=== PATIENT | female | born 1965 | race Caucasian/White ===

== ENCOUNTER 2021-03-18 10:22 | Emergency (ER) | payer BC, SELFPAY ==
--- NOTE | ~2021-03-18 | XR_ITS ---
EXAMINATION: XR HIP, RIGHT CLINICAL INFORMATION: Pain after fall COMPARISON: CT abdomen pelvis 07/28/2017 TECHNIQUE: Two views of the right hip. FINDINGS: Visualized portion of the proximal right femur demonstrate no fracture. Right femoral head is well-seated within the acetabulum. Right femoral acetabular joint space is relatively well maintained although there are some subtle sclerotic changes along the superior right acetabular margin. A tiny osteophyte is present along the superolateral aspect of the right acetabulum. Punctate calcifications within the pelvis are likely vascular in nature. The pelvic ring is intact. Sacroiliac joints appear symmetric. Grossly unremarkable frontal view of the left hip. XR/XR hip RT w PEL1V IMPRESSION: Mild degenerative changes of the right hip without fracture or dislocation.
--- NOTE | ~2021-03-18 | CT_ITS ---
EXAM: Noncontrast CT scan of the head and cervical spine. INDICATION: Fall COMPARISON: Brain MRI 12/26/2020 TECHNIQUE: Axial slices were obtained from skull base to vertex and displayed. This was followed by helical, multislice, multidetector axial images from the occiput to the upper thorax. Coronal and sagittal reformats of the cervical spine in addition to coronal reformats of the head were obtained at the technologist workstation. DLP: 1290 mGy-cm FINDINGS: HEAD: There is no evidence of acute intracranial hemorrhage or territorial infarction. No abnormal mass effect or midline shift is appreciated. Patrick-white differentiation is well preserved. No extra-axial fluid collections. The ventricular system and cortical sulci are prominent, consistent with age-appropriate volume loss. Mild cerebellar volume loss is also appreciated. There are areas of low density in the periventricular and subcortical white matter, most consistent with sequelae of microvascular ischemic change. Soft tissue hematoma overlying the right posterior scalp. No underlying osseous injury. Mild mucosal thickening of the visualized right maxillary sinus. Other visualized paranasal sinuses and mastoid air cells are well aerated. SPINE: There is straightening of the normal cervical lordosis. Alignment is otherwise unremarkable. Vertebral body heights are maintained. Mild to moderately decreased C4/C5 disc space height with mild narrowing of the C5/C6 and C6/C7 disc space heights. Small osteophytes are present throughout the mid and lower cervical spine. Small posterior disc osteophyte complexes are noted at C4/C5, C5/C6 and C6/C7. Mild diffuse facet hypertrophy. CT/CT cervical spine wo con IMPRESSION: 1. Small soft tissue hematoma overlying the right posterior scalp. No underlying osseous injury. 2. No acute intracranial pathology. 3. Mild sinus disease. 4. No fractures or dislocations of the cervical spine. This CT examination was performed using dose optimization techniques as appropriate, variously including the following: *Automated exposure control *Adjustment of mA and/or kV according to patient size (this includes techniques or standardized protocols for targeted exams where dose is matched to indication/reason for exam; i.e. extremities or head) *Use of iterative reconstruction technique
[2021-03-18 10:38] VITALS: BP 129/78; PULSE 79; RESP 16; TEMP 36.2; O2SAT 97; BMI 30.5
--- NOTE | 2021-03-18 11:14 | ED_ITS ---
HPI - Fall General Chief Complaint: Fall Stated Complaint: fall - head injury Time Seen by Provider: 03/18/21 11:13 Source: patient Mode of arrival: ambulatory Limitations: no limitations History of Present Illness MD complaint: fall Onset (ago): minute(s) (just prior to arrival ) Fall from: standing Fall witnessed: no Place fall occurred: home Loss of consciousness: yes Prolonged down time: unclear Symptoms prior to fall: none Context: tripped/slipped (on ice) Location of injury: head and pelvis (R hip) Severity: moderate Quality: aching Associated symptoms (after fall): headache and lightheaded Related Data Previous Rx's Medication Instructions Recorded cyclobenzaprine 10 mg tablet 10 mg PO TID PRN #14 tab 03/18/21 lidocaine 5 % topical patch 1 patch TOPICAL DAILY PRN #30 ea 03/18/21 ondansetron 4 mg disintegrating 4 mg PO Q8H PRN #20 tab 03/18/21 tablet Allergies Allergy/AdvReac Type Severity Reaction Status Date / Time naproxen [NAPROXEN] Allergy Intermediate DIZZY Unverified 10/27/19 16:11 Naproxen Allergy Unknown Uncoded 09/27/10 00:00 Review of Systems Verdana 4l Review of Systems: Verdana 4d Verdana 4d Constitutional : No Fever, No Chills, No Fatigue ENT/Mouth : No sore throat, No Rhinorrhea Eyes: No Eye Pain, No Swelling, No Redness Cardiovascular : No Chest Pain, No SOB, No Dyspnea on Exertion Respiratory : No Cough, No Sputum GastrointestinalGastrointestinal : No Nausea, No Vomiting, No Diarrhea, No abdominal Pain Genitourinary : No Dysuria, No Urinary Frequency, No Hematuria, Musculoskeletal : pos joint pain, No Myalgias, No Joint Swelling Skin : No Skin Lesions, No rash Neuro : No Weakness, No Numbness, pos Dizziness, positive Headache Psych : No Anxiety/Panic, No Depression Heme/Lymph: No Bruising, No Bleeding,No Lymphadenopathy Endocrine : No Polyuria, No Polydipsia All other systems reviewed and are negative [facility] Past Medical History Attestation statement: The following information was validated with the patient. Medical History HLD (hyperlipidemia) Surgical History H/O: hysterectomy Social History Social History (Updated 03/18/21 @ 11:43 by Laurita Lew DO) Alcohol intake: unknown Patient Tobacco Use Status: Never used Tobacco Use of substances other than those prescribed or required for medical reasons: Unknown Advance Directives: No Advance Directives Information Provided: No Physical Exam Verdana 4l Vital Signs: Verdana 4d Verdana 4d Vital Signs: Verdana 4d Verdana 4Bd Last Vital Signs Verdana 4d Vice President Payer New 4d Vice President Payer New 4d Temp 98.3 F 03/18/21 13:23 Vice President Payer New 4d Pulse 68 03/18/21 13:23 Vice President Payer New 4d Resp 16 03/18/21 13:23 BP 109/63 03/18/21 13:23 Pulse Ox 94 03/18/21 13:23 BMI result Body Mass Index 30.5 Appearance: Alert. Oriented X3. No acute distress. Eyes: Pupils equal, round and reactive to light. ENT: Pharynx normal. mild swelling and ttp R parietal scalp Neck: Normal inspection. Neck supple. some L sided pain with ROM but nothing radicular, no step offs CVS: Normal heart rate and rhythm. Pulses normal. Respiratory: No respiratory distress. Breath sounds normal. Abdomen: Soft and nontender. Back: no midline ttp, atraumatic Skin: Skin warm and dry. Normal skin color. Normal skin turgor. Extremities: No lower extremity edema. No calf ttp Neuro: Oriented X 3. No motor deficit. No sensory deficit. Course Course Course Narrative: no acute findings, GCS 15 - 2.5 hours after the fact stable for DC at this time, able to bear weight and walk, doubt occult hip fracture MDM - Fall MDM Narrative Medical decision making narrative: 55 yo female with head injury after falling on ice pos LOC no DOAC she is GCS 15, c/o dizziness. Also c/o R hip pain at this time will need CT head/cspine to r/o trauma given degree of headache with LOC, also R hip xrays, dispo per results and findings. Discharge Plan Discharge Clinical Impression: Head injury Qualifiers: Encounter type: initial encounter Qualified Code(s): S09.90XA - Unspecified injury of head, initial encounter Hip sprain Qualifiers: Encounter type: initial encounter Laterality: right Qualified Code(s): S73.101A - Unspecified sprain of right hip, initial encounter Contusion Qualifiers: Encounter type: initial encounter Contusion area: head Laterality: right Patient Disposition: Home, Self-Care Instructions: Head Injury (ED), Contusion in Adults (ED), Hip Sprain (ED) Additional Instructions: return to ED for any worsening symptoms or concerns Prescriptions: New cyclobenzaprine 10 mg tablet 10 mg PO TID PRN (Reason: muscle spasm) Qty: 14 0RF ondansetron 4 mg tablet,disintegrating 4 mg PO Q8H PRN (Reason: nausea and vomiting) Qty: 20 0RF lidocaine 5 % adhesive patch,medicated 1 patch topical DAILY PRN (Reason: pain) Qty: 30 0RF Rx Instructions: leave on most painful area for up to 12 hrs Referrals: Qamar Valdovinos MD [Primary Care Provider] - 2 days (if not better) Stand Alone Forms: Work/School Release Interventions: ED Discharge Assessment Last Done: 03/18/21 13:19 Discharge Date/Time: 03/18/21 13:30
[2021-03-18] MEDS: Ondansetron ODT 4 MG TAB.RAPDIS TRANSLINGU (11:46)
[2021-03-18] MEDS: Acetaminophen 325 MG TABLET 650 MG PO (11:46)
--- NOTE | 2021-03-18 12:30 | PC.NURSE ---
pt alert and oriented to self, unsure of date/year, unable to remember phone lock code, vss, c/o headache w 11/18 pain, waiting for CT.
[2021-03-18 13:23] VITALS: BP 109/63; PULSE 68; RESP 16; TEMP 36.8; O2SAT 94
[2021-03-18] MEDS: Ibuprofen 400 MG TABLET PO (13:25)
== END 2021-03-18 13:30 | disposition home or self-care (01) ==
PROVIDERS: Emergency Provider Emergency Medicine; PCP Internal Medicine
DX: S09.90XA Unspecified injury of head, initial encounter (principal); S73.101A Unspecified sprain of right hip, initial encounter; S00.03XA Contusion of scalp, initial encounter; W00.0XXA Fall on same level due to ice and snow, initial encounter; Y93.89 Activity, other specified; Y92.014 Private driveway to single-family (private) house as the place of occurrence of the external cause; Y99.9 Unspecified external cause status
CPT/HCPCS: 70450; 72125; 73502; 99284

== ENCOUNTER 2021-09-19 11:19 | Emergency (ER) | payer BC, SELFPAY ==
--- NOTE | ~2021-09-19 | XR_ITS ---
EXAMINATION: XR CHEST CLINICAL INFORMATION: Chest pain COMPARISON: None TECHNIQUE: Frontal view of the chest was obtained. FINDINGS: There is slight tortuosity of the aorta. The cardiac size richard and vasculature are within normal limits. No consolidation or edema. Mild subsegmental linear density left lower lung could be atelectasis. Slight relative elevation of the right hemidiaphragm. No pleural fluid or pneumothorax. No suspicious abnormality the visualized upper abdomen XR/XR chest 1V IMPRESSION: No acute pneumonia or edema. No pleural fluid or pneumothorax. There may be some minimal subsegmental left lower lobe atelectasis
--- NOTE | ~2021-09-19 | CT_ITS ---
EXAMINATION: CT HEAD WITHOUT CONTRAST CLINICAL INFORMATION: Headache COMPARISON: CT abdomen from 03/18/2021 TECHNIQUE: Contiguous axial imaging was performed from the skull base to vertex without intravenous administration of contrast. This CT examination was performed using dose optimization techniques as appropriate, variously including the following: *Automated exposure control *Adjustment of mA and/or kV according to patient size (this includes techniques or standardized protocols for targeted exams where dose is matched to indication/reason for exam; i.e. extremities or head) *Use of iterative reconstruction technique DLP: 627 mGy-cm FINDINGS: There is no evidence of acute intracranial hemorrhage or territorial infarction. No abnormal mass effect or midline shift is seen. Patrick to white matter differentiation is well preserved. No extra-axial fluid collections are identified. The ventricles are normal in size. There is no abnormal attenuation within the brain parenchyma. Stable sclerotic focus along the left anterior foramen magnum statistically representing an island. The osseous structures and soft tissues are normal. The mastoid air cells and visualized portions of the paranasal sinuses are well aerated. CT/CT head/brain wo con IMPRESSION: No acute intracranial pathology.
--- NOTE | 2021-09-19 11:26 | ECG_ITS ---
Test Reason : CHEST PAIN Blood Pressure : / mmHG Vent. Rate : 104 BPM Atrial Rate : 104 BPM P-R Int : 132 ms QRS Dur : 082 ms QT Int : 330 ms P-R-T Axes : 039 -67 049 degrees QTc Int : 433 ms Sinus tachycardia Left axis deviation Inferior infarct , age undetermined Abnormal ECG No previous ECGs available Referred By: Generic ED Physician Electronically Signed By:GO PEREZ
[2021-09-19 11:33] VITALS: BP 103/73; PULSE 104; RESP 18; TEMP 36.9; O2SAT 96; BMI 30.9
[2021-09-19 11:52] LABS: Hematocrit 43.2 % (37.0-47.0); Hemoglobin 14.6 g/dl (12.0-16.0); Mean Corpuscular HGB Conc 33.8 g/dl (31.0-35.0); Mean Corpuscular Hemoglobin 31.1 pg (27.0-33.0); Mean Corpuscular Volume 92.1 fL (80.0-98.0); Mean Platelet Volume 9.9 fL (9.4-12.3); Platelet Count 250 X10*3/uL (160-400); Red Blood Count 4.69 X10*6/uL (4.20-5.50); Red Cell Distribution Width 12.2 % (11.0-16.0); White Blood Count 7.7 X10*3/uL (4.8-10.8)
[2021-09-19 12:03] LABS: Anion Gap 15 (12-20); Blood Urea Nitrogen 23 mg/dL (9-16); Calcium 9.5 mg/dL (8.4-10.2); Carbon Dioxide 25 mmol/L (22-29); Chloride 106 mmol/L (96-108); Creatinine Clr Calc Pharmacy 79.1; Estimated Glomerular Filt Rate > 60; Glucose Random 124 mg/dL (60-115); Potassium 4.6 mmol/L (3.3-5.1); Sodium 141 mmol/L (135-145)
[2021-09-19 12:11] LABS: B Type Natriuretic Peptide < 10 pg/mL (<100); Troponin-I High Sensitivity < 3.5 ng/L (<3.5-17.0)
--- NOTE | 2021-09-19 13:17 | ED_ITS ---
HPI - Chest Pain General Chief Complaint: Chest Pain Stated Complaint: dizzy pain l side chest Time Seen by Provider: 09/19/21 12:28 Source: patient Mode of arrival: ambulatory Limitations: no limitations History of Present Illness HPI narrative: 56-year-old female history of migraine and high cholesterol presents to ED for multiple complaints. Patient states since Thursday having migraine headache exacerbation with dizziness described as the room spinning, nausea, vomiting, headache and some photophobia. Patient states still having headache but significantly improved from Thursday. Patient states dizziness also improving. Patient states around 09:00 o'clock was with the granddaughter and she thought sounded weird, but continued about her day. Patient states presently no slurred speech, no facial droop, no paralysis of extremities, no loss of vision, or inability to walk. Patient states 1 hour before coming to the ER she started have some pleuritic chest pain on the left described as sharp. Related Data Previous Rx's Medication Instructions Recorded cyclobenzaprine 10 mg tablet 10 mg PO TID PRN muscle spasm #14 03/18/21 tabs lidocaine 5 % topical patch 1 patch topical DAILY PRN pain #30 03/18/21 ea ondansetron 4 mg disintegrating 4 mg PO Q8H PRN nausea and 03/18/21 tablet vomiting #20 tabs smozwcuazy-pqzzwyxtjwwcp-iziolxwr 1 cap PO Q4-6H PRN pain 5 days #20 09/19/21 50 mg-300 mg-40 mg capsule caps (Fioricet) ketorolac 10 mg tablet 10 mg PO QID PRN pain 5 days #20 09/19/21 tabs prednisone 20 mg tablet 40 mg PO DAILY 5 days #10 tabs 09/19/21 Allergies Allergy/AdvReac Type Severity Reaction Status Date / Time naproxen [NAPROXEN] Allergy Intermediate DIZZY Unverified 10/27/19 16:11 Naproxen Allergy Unknown Uncoded 09/27/10 00:00 Review of Systems Review of Systems: migraine headache. improving dizziness. resolved nausea/vomitting. Yes all other systems are reviewed and are negative [facility] Past Medical History Medical History HLD (hyperlipidemia) Surgical History H/O: hysterectomy Social History Social History (Updated 03/18/21 @ 11:43 by Antonieta Lew DO) Alcohol intake: unknown Patient Tobacco Use Status: Never used Tobacco Advance Directives: No Advance Directives Information Provided: No Physical Exam Vital Signs: Vital Signs: Last Vital Signs Temp 98.0 F 09/19/21 16:15 Pulse 89 09/19/21 16:15 Resp 18 09/19/21 16:15 BP 120/75 09/19/21 16:15 Pulse Ox 97 09/19/21 16:15 O2 Del Method 09/19/21 16:15 BMI result Body Mass Index 30.9 Const: General: cooperative, healthy appearing, comfortable, no acute distress, well developed, alert, awake and Physically active Orientation/consciousness: oriented to person, oriented to place, oriented to time and patient oriented x3 HEENT: Head: Yes normal to inspection, Yes No palpable skull fracture present, Yes normocephalic, Yes atraumatic and No abrasion Eyes: General: appearance normal, both eyes and all related structures Neck: Neck: Yes normal visual inspection, Yes full ROM, Yes no lymphadenopathy, Yes no meningeal signs, Yes trachea midline, Yes supple, No anterior neck swelling and No tender Chest: Chest palpation & inspection: normal inspection of the chest and normal palpation of entire chest wall Resp: Effort & Inspection: normal respiratory effort and able to speak in complete sentences Auscultation: clear to auscultation bilaterally Cardio: Jugular venous distension: no JVD Heart sounds: S1 normal heart sound present and S2 normal heart sound present GI: Inspection: Yes normal to inspection and No abdominal wall ecchymosis Palpation (GI): Soft to palpation, not firm, nontender, no guarding and not rigid : General: No CVA tenderness and Yes no CVA tenderness Back/Spine/Pelvis: Back: no CVA tenderness, No CVA tenderness and No back tenderness Skin: General skin exam: no rashes or lesions noted and elasticity normal Neuro: Other: Negative slurred speech. Negative facial droop. Negative pronator drift. Dnvges-sk-emlc rapid hand movement intact. Negative Romberg. All extremities equal strength 5+. General: oriented to person, oriented to place, oriented to time, patient oriented x3, gait normal, tone normal, moves all extremities, Normal light touch and pain sensation, no meningeal signs, no focal motor deficits and CN's II-XI intact bilaterally Extrem: General: Yes normal to inspection and Yes full ROM Psych: Appearance: grossly normal, well kempt and not disheveled NIH Stroke Scale Internal: Initial- Upon Arrival Level of Consciousness: Alert Level of Consciousness Questions: Answers both questions correctly Level of Consciousness Commands: Performs both tasks correctly Best Gaze: Normal Visual: No visual loss Facial Palsy: Normal Motor Arm (Right): No drift Motor Arm (Left): No drift Motor Leg (Right): No drift Motor Leg (Left): No drift Limb Ataxia: Absent Sensory: Normal Best Language: No aphasia Dysarthia: Normal Extinction and Inattention: No abnormality Score: 0 Course Course Course Narrative: Due to patient stating pleurisy will order D-dimer. Patient wrapped a medical screen done patient had the PEG chest x-ray ordered. NIH score 0. Still order head CT due to patient stating headache for the past 3 days although history of migraines and symptoms sound like migraines. Zofran Fioricet fluid ordered. Will order 2nd troponin due to Age. Reevaluation(s) Reevaluation #1: Chest CT scan came back normal. NIH score 0. case discussed with attending Dr. Lew who agrees patient is not having a stroke. Patient is 2 troponin negative patient given Toradol, Fioricet, dexamethasone, and Toradol for migraine exacerbation. EKG negative STEMI. D-dimer negative. Well's Score is 0 . Presently not suspecting PE, mi, or stroke. Diagnosis migraine exacerbation. Negative for any neuro deficits. Time: 17:09 MDM - Chest Pain MDM Narrative Medical decision making narrative: Atypical chest pain. Migraines as Lab Data Result diagrams: 09/19/21 11:42 09/19/21 11:42 Labs: Lab Results 09/19/21 09/19/21 09/19/21 Range/Units 11:42 11:42 11:42 WBC 7.7 (4.8-10.8) X10*3/uL RBC 4.69 (4.20-5.50) X10*6/uL Hgb 14.6 (12.0-16.0) g/dl Hct 43.2 (37.0-47.0) % MCV 92.1 (80.0-98.0) fL MCH 31.1 (27.0-33.0) pg MCHC 33.8 (31.0-35.0) g/dl RDW 12.2 (11.0-16.0) % Plt Count 250 (160-400) X10*3/uL MPV 9.9 (9.4-12.3) fL Absolute Nucleated RBC 0.000 (0.0-0.012) X10*3/uL Nucleated RBC % (auto) 0.0 (0.0-0.2) /100WBC PT (10.0-13.1) SEC INR (0.9-1.1) APTT (26.0-36.4) SEC D-Dimer High Sensitivty NG/ML Sodium 141 (135-145) mmol/L Potassium 4.6 (3.3-5.1) mmol/L Chloride 106 (96-108) mmol/L Carbon Dioxide 25 (22-29) mmol/L Anion Gap 15 (12-20) BUN 23 H (9-16) mg/dL Creatinine 0.82 (0.5-1.4) mg/dL Estim Creat Clear Calc 79.1 Estimated GFR > 60 Random Glucose 124 H (60-115) mg/dL Calcium 9.5 (8.4-10.2) mg/dL Troponin I High Sens < 3.5 (<3.5-17.0) ng/L B-Natriuretic Peptide < 10 (<100) pg/mL 09/19/21 09/19/21 Range/Units 13:27 15:31 WBC (4.8-10.8) X10*3/uL RBC (4.20-5.50) X10*6/uL Hgb (12.0-16.0) g/dl Hct (37.0-47.0) % MCV (80.0-98.0) fL MCH (27.0-33.0) pg MCHC (31.0-35.0) g/dl RDW (11.0-16.0) % Plt Count (160-400) X10*3/uL MPV (9.4-12.3) fL Absolute Nucleated RBC (0.0-0.012) X10*3/uL Nucleated RBC % (auto) (0.0-0.2) /100WBC PT 9.8 L (10.0-13.1) SEC INR 0.9 (0.9-1.1) APTT 31.5 (26.0-36.4) SEC D-Dimer High Sensitivty < 150 NG/ML Sodium (135-145) mmol/L Potassium (3.3-5.1) mmol/L Chloride (96-108) mmol/L Carbon Dioxide (22-29) mmol/L Anion Gap (12-20) BUN (9-16) mg/dL Creatinine (0.5-1.4) mg/dL Estim Creat Clear Calc Estimated GFR Random Glucose (60-115) mg/dL Calcium (8.4-10.2) mg/dL Troponin I High Sens < 3.5 (<3.5-17.0) ng/L B-Natriuretic Peptide < 10 (<100) pg/mL ECG Data ECG #1: Interpretation: Sinus Tachycardia. NOmral Sinus rhythm, Vent rate 102, MO interval. 132 QRS duration, QTC 433, Discharge Plan Discharge Clinical Impression: Atypical chest pain, Migraine headache Patient Disposition: Home, Self-Care Instructions: Chest Pain (DC), Migraine Headache (ED), Acute Headache (ED) Additional Instructions: Return to the ED immediatley for slurred speech, facial droop, paralysis of extremities, nausea, vomitting, chest pain, fever, chills, difficulity walking, fever, chills, severe headache, loss of vision, coughing up blood, leg swelling, calf pain, pain on inspiration or any other concerning symptoms. Please follow up with PCP and neurologist Prescriptions: New uykjbyjvkj-mrdsbjqwitcpl-tuxq [Fioricet] 50-300-40 mg capsule 1 cap PO Q4-6H PRN (Reason: pain) 5 Days Qty: 20 0RF prednisone 20 mg tablet 40 mg PO DAILY 5 Days Qty: 10 0RF ketorolac 10 mg tablet 10 mg PO QID PRN (Reason: pain) 5 Days Qty: 20 0RF Rx Instructions: received 30mg IM toradol in the ED No Action cyclobenzaprine 10 mg tablet 10 mg PO TID PRN (Reason: muscle spasm) Qty: 14 0RF ondansetron 4 mg tablet,disintegrating 4 mg PO Q8H PRN (Reason: nausea and vomiting) Qty: 20 0RF lidocaine 5 % adhesive patch,medicated 1 patch topical DAILY PRN (Reason: pain) Qty: 30 0RF Rx Instructions: leave on most painful area for up to 12 hrs Stand Alone Forms: Work/School Release Print Language: Mohawk
[2021-09-19] MEDS: ondansetron HCL 4 MG/2 ML VIAL IVPUSH (13:35)
[2021-09-19] MEDS: Butalb/Acetamin/Caff 50/325/40 TABLET 2 TAB PO (13:35)
[2021-09-19] MEDS: 0.9 % Sodium Chloride 1,000 ML 999 ML IV (13:35)
[2021-09-19 13:39] LABS: INTERNATIONAL NORM RATIO 0.9 (0.9-1.1); Prothrombin Time 9.8 SEC (10.0-13.1)
[2021-09-19 13:41] LABS: Partial Thromboplastin Time 31.5 SEC (26.0-36.4)
[2021-09-19 13:45] LABS: D Dimer High Sensitivity < 150 NG/ML
[2021-09-19 15:06] VITALS: BP 108/64; PULSE 95; TEMP 36.9; O2SAT 98
[2021-09-19 15:55] LABS: B Type Natriuretic Peptide < 10 pg/mL (<100); Troponin-I High Sensitivity < 3.5 ng/L (<3.5-17.0)
[2021-09-19 16:15] VITALS: BP 120/75; PULSE 89; RESP 18; TEMP 36.7; O2SAT 97
[2021-09-19] MEDS: dexAMETHasone sod phosphate 10 MG/ML VIAL IVPUSH (16:38)
[2021-09-19] MEDS: Ketorolac Tromethamine 30 MG/ML VIAL IVPUSH (16:38)
== END 2021-09-19 18:11 | disposition home or self-care (01) ==
PROVIDERS: Physician Assistant; Emergency Provider Emergency Medicine; PCP Internal Medicine
DX: R07.89 Other chest pain (principal); G43.909 Migraine, unspecified, not intractable, without status migrainosus
CPT/HCPCS: 36415; 70450; 71045; 80048; 83880; 84484; 85027; 85379; 85610; 85730; 93005; 96361; 96374; 96375; 99284; 99285; J1100; J1885; J2405

== ENCOUNTER 2021-10-23 12:26 | Inpatient (IN) | payer BC, SELFPAY ==
--- NOTE | ~2021-10-23 | CT_ITS ---
EXAMINATION: CT ABDOMEN AND PELVIS WITHOUT CONTRAST CLINICAL INFORMATION: Left lower quadrant pain. Evaluate for diverticulitis. COMPARISON: CT abdomen/pelvis dated from 07/28/2017. TECHNIQUE: Multidetector volumetric imaging was performed from the superior aspect of the liver through the pubic symphysis. Sagittal and coronal reformatted images were obtained on the technologist's workstation. This CT examination was performed using dose optimization techniques as appropriate, variously including the following: *Automated exposure control *Adjustment of mA and/or kV according to patient size (this includes techniques or standardized protocols for targeted exams where dose is matched to indication/reason for exam; i.e. extremities or head) *Use of iterative reconstruction technique DLP: 751 mGy-cm FINDINGS: LUNG BASES: Subsegmental atelectasis. No focal consolidation or pleural effusion. LIVER, GALLBLADDER, AND BILIARY TREE: A few liver cysts and several other too small to characterize hypodensities are not convincingly changed when compared to 07/28/2017. The liver is normal in size, shape and attenuation. No new liver lesions. Normal appearance of the gallbladder. No findings to suspect acute cholecystitis. No biliary ductal dilatation. PANCREAS: Unremarkable. SPLEEN: Unremarkable. ADRENAL GLANDS: Unremarkable. KIDNEYS AND URETERS: The kidneys are normal in size, shape, and attenuation. No hydronephrosis, hydroureter, or calculi seen. No perinephric stranding. BLADDER: Decompressed limiting its evaluation. GASTROINTESTINAL TRACT: The stomach and the small bowel are nondilated. Normal appendix. There is wall thickening and significant fat stranding associated with diverticuli in the sigmoid colon. No evidence of drainable collection at this time. No pneumoperitoneum. No evidence of bowel obstruction. ABDOMINAL WALL: No significant hernia is appreciated. LYMPH NODES: No lymphadenopathy by size criteria. VASCULAR: Aortoiliac atherosclerosis. The abdominal aorta is of normal diameter. PELVIC VISCERA: Small volume of free fluid, likely physiologic or reactive. Redemonstration of a bilobed fatty density structure in the lower abdomen/upper pelvis measuring 3.6 cm craniocaudally (5:40) stable when compared to 07/28/2017. OSSEOUS STRUCTURES: No acute or aggressive osseous abnormalities. Degenerative changes of the spine. CT/CT abdomen pelvis wo IV con IMPRESSION: Findings are most suspicious for acute sigmoid diverticulitis. Other chronic findings as above.
[2021-10-23 13:18] VITALS: BP 155/89; PULSE 100; RESP 18; TEMP 36.5; O2SAT 98; BMI 31.7
[2021-10-23 13:41] LABS: MANUAL DIFF FLAG NO
[2021-10-23 13:44] LABS: Basophils Percent Auto 0.3 % (0-2); Eosinophils Absolute Auto 0.2 X10*3/uL (0.0-0.4); Eosinophils Percent Auto 1.8 % (0-4); Hematocrit 42.4 % (37.0-47.0); Hemoglobin 13.8 g/dl (12.0-16.0); Imm Gran Abs Auto 0.03 X10*3/uL (0.00-0.03); Imm Gran Pct Auto 0.3 % (0.0-0.4); Lymphocytes Absolute Auto 1.3 X10*3/uL (1.2-4.9); Lymphocytes Percent Auto 13.7 % (20-40); Mean Corpuscular HGB Conc 32.5 g/dl (31.0-35.0); Mean Corpuscular Hemoglobin 30.1 pg (27.0-33.0); Mean Corpuscular Volume 92.4 fL (80.0-98.0); Mean Platelet Volume 10.4 fL (9.4-12.3); Monocytes Absolute Auto 0.9 X10*3/uL (0.1-1.2); Monocytes Percent Auto 9.2 % (2-11); Neutrophils Absolute Auto 7.3 x10*3/uL (2.0-8.3); Neutrophils Percent Auto 74.7 % (45-73); Platelet Count 227 X10*3/uL (160-400); Red Blood Count 4.59 X10*6/uL (4.20-5.50); Red Cell Distribution Width 12.1 % (11.0-16.0); White Blood Count 9.8 X10*3/uL (4.8-10.8)
[2021-10-23 14:21] LABS: Alanine Aminotransferase 15 U/L (0-31); Alkaline Phosphatase 67 U/L (39-117); Anion Gap 15 (12-20); Aspartate Amino Transferase 16 U/L (5-31); Bilirubin Direct 0.2 mg/dL (0.0-0.5); Bilirubin Total 0.5 mg/dL (0.0-1.0); Blood Urea Nitrogen 12 mg/dL (9-16); Calcium 9.2 mg/dL (8.4-10.2); Carbon Dioxide 23 mmol/L (22-29); Chloride 106 mmol/L (96-108); Creatinine Clr Calc Pharmacy 88.9; Estimated Glomerular Filt Rate > 60; Glucose Random 97 mg/dL (60-115); Lipase 16 U/L (8-78); Potassium 4.7 mmol/L (3.3-5.1); Sodium 139 mmol/L (135-145); Total Protein 6.7 g/dL (6.5-8.0)
--- NOTE | 2021-10-23 17:43 | ED_ITS ---
HPI - Abdominal Pain General Chief Complaint: Abdominal Pain Stated Complaint: sever diverticulitis Time Seen by Provider: 10/23/21 12:29 Source: patient Mode of arrival: ambulatory Limitations: no limitations History of Present Illness HPI narrative: 56-year-old female with a PMHx of diverticulitis who presents to the ED for evaluation of LLQ pain. The patient reports that her pain began approximately 1 week ago and she chose to attempt to treat herself conservatively at home with a liquid diet because she becomes ill from the antibiotics she has received with past episodes of diverticulitis. She tells me that this worked for a few days, however, she went back to her normal diet over the weekend and then her pain returned and has worsened over the past 3 days. She saw her PCP and was given Augmentin, she has taken 4 doses without relief. She now reports 10/10 pain in her LLQ and has been unable to tolerate anything by mouth, appears very uncomfortable. She has nausea but denies vomiting, fever, chills, chest pain, shortness of breath, headaches, or dizziness. MD elicited complaint: abdominal pain Location: LLQ Related Data Previous Rx's Medication Instructions Recorded cyclobenzaprine 10 mg tablet 10 mg PO TID PRN muscle spasm #14 03/18/21 tabs lidocaine 5 % topical patch 1 patch topical DAILY PRN pain #30 03/18/21 ea ondansetron 4 mg disintegrating 4 mg PO Q8H PRN nausea and 03/18/21 tablet vomiting #20 tabs [id number]-[id number]-vxiwpncc 1 cap PO Q4-6H PRN pain 5 days #20 09/19/21 50 mg-300 mg-40 mg capsule caps (Fioricet) ketorolac 10 mg tablet 10 mg PO QID PRN pain 5 days #20 09/19/21 tabs prednisone 20 mg tablet 40 mg PO DAILY 5 days #10 tabs 09/19/21 Allergies Allergy/AdvReac Type Severity Reaction Status Date / Time naproxen [NAPROXEN] Allergy Intermediate DIZZY Unverified 10/27/19 16:11 Naproxen Allergy Unknown Uncoded 09/27/10 00:00 Review of Systems Review of Systems Constitutional : No Weight loss, No Fever, + Chills, No Fatigue, No Malaise ENT/Mouth : No sore throat, No Rhinorrhea Eyes: No Eye Pain, No Swelling, No Redness Cardiovascular : No Chest Pain, No SOB, No Dyspnea on Exertion, No Orthopnea, No Edema, No Palpitations Respiratory : No Cough, No Sputum, No Wheezing Gastrointestinal : + Nausea, No Vomiting, No Diarrhea, No Constipation, + abdominal Pain, No Hematochezia, No Melena Genitourinary : No Dysuria, No Urinary Frequency, No Hematuria, Musculoskeletal : No joint pain, No Myalgias, No Joint Swelling Skin : No Skin Lesions, No rash Neuro : No Weakness, No Numbness, No Dizziness, No Headache Psych : No Anxiety/Panic, No Depression All other systems reviewed and are negative Yes all other systems are reviewed and are negative COUNT INCLUDES THE [facility] Past Medical History Attestation statement: The following information was validated with the patient. Source: old records reviewed and nursing notes reviewed Medical History HLD (hyperlipidemia) Surgical History H/O: hysterectomy Social History Social History (Updated 03/18/21 @ 11:43 by Antonieta Lew DO) Alcohol intake: unknown Patient Tobacco Use Status: Never used Tobacco Advance Directives: No Advance Directives Information Provided: No Physical Exam ED Vital Signs: Vital Signs - 24 hr 10/23/21 13:18 Temperature 97.7 F Pulse Rate 100 Respiratory Rate 18 Blood Pressure 155/89 H Pulse Oximetry 98 Oxygen Delivery Method Room Air BMI result Body Mass Index 31.7 vss Appearance: Alert.? Oriented X3.? Uncomfortable appearing, mild distress. Tearful during evaluation. Head: Normocephalic, atraumatic, no step-offs or deformities Eyes: Pupils equal, round and reactive to light.? Neck: Normal inspection.? Neck supple.? CVS: Normal heart rate and rhythm.? Pulses normal.? Respiratory: No respiratory distress.? Breath sounds normal.? Abdomen: Soft and +LLQ pain.? Skin: Skin warm and dry.? Normal skin color.? Normal skin turgor.? Extremities: No lower extremity edema.? No calf ttp. 5/5 strength to bilateral upper and lower extremities Neuro: Oriented X 3.? No motor deficit.? No sensory deficit. CN 2-12 intact Course Reevaluation(s) Reevaluation #1: CT abdomen/pevis remarkable for acute sigmoid diverticulitis. CBC shows mild elevated neutrophils, no leukocytosis. Chemistry WNL. Will give Levoquin, Flagyl, Zofran, Morphine. Time: 17:58 Reevaluation #2: Patient will be admitted to hospitalist for further intervention and tx as patient is on PO atbx on home and isnt tollerating PO. Time: 18:01 MDM - Abdominal Pain MDM Narrative Medical decision making narrative: 17:45 56 y/o F presenting with severe LLQ pain. Patient has known diverticulosis, PCP provided the patient with Augmentin, has taken for 2 days, patient reports worsening pain. Unable to tolerate PO. PE significant for LLQ pain, no rigidity or signs of acute abdomen. Patient tea rful and uncomfortable appearing. Plan to obtain basic labs, CT abd/pelvis. Suspect persistent diverticulitis, less likely complicated diverticulitis with perforation/abscess, torsion, appendicitis. Medical Records Attestation: I reviewed the patient's medical records. Lab Data Attestation: I reviewed the patient's lab results. Result diagrams: 10/23/21 13:35 10/23/21 13:35 Labs: Lab Results 10/23/21 10/23/21 10/23/21 Range/Units 13:35 13:35 13:35 WBC 9.8 (4.8-10.8) X10*3/uL RBC 4.59 (4.20-5.50) X10*6/uL Hgb 13.8 (12.0-16.0) g/dl Hct 42.4 (37.0-47.0) % MCV 92.4 (80.0-98.0) fL MCH 30.1 (27.0-33.0) pg MCHC 32.5 (31.0-35.0) g/dl RDW 12.1 (11.0-16.0) % Plt Count 227 (160-400) X10*3/uL MPV 10.4 (9.4-12.3) fL Immature Gran % (Auto) 0.3 (0.0-0.4) % Neut % (Auto) 74.7 H (45-73) % Lymph % (Auto) 13.7 L (20-40) % [place] % (Auto) 9.2 (2-11) % Eos % (Auto) 1.8 (0-4) % Baso % (Auto) 0.3 (0-2) % Lymph # (Auto) 1.3 (1.2-4.9) X10*3/uL [place] # (Auto) 0.9 (0.1-1.2) X10*3/uL Eos # (Auto) 0.2 (0.0-0.4) X10*3/uL Baso # (Auto) 0.0 (0.0-0.2) X10*3/uL Abs Immat Gran (auto) 0.03 (0.00-0.03) X10*3/uL Absolute Neuts (auto) 7.3 (2.0-8.3) x10*3/uL Absolute Nucleated RBC 0.000 (0.0-0.012) X10*3/uL Nucleated RBC % (auto) 0.0 (0.0-0.2) /100WBC Sodium 139 (135-145) mmol/L Potassium 4.7 (3.3-5.1) mmol/L Chloride 106 (96-108) mmol/L Carbon Dioxide 23 (22-29) mmol/L Anion Gap 15 (12-20) BUN 12 (9-16) mg/dL Creatinine 0.74 (0.5-1.4) mg/dL Estim Creat Clear Calc 88.9 Estimated GFR > 60 Random Glucose 97 (60-115) mg/dL Lactic Acid 1.0 (0.5-2.0) mmol/L Calcium 9.2 (8.4-10.2) mg/dL Total Bilirubin 0.5 (0.0-1.0) mg/dL Direct Bilirubin 0.2 (0.0-0.5) mg/dL AST 16 (5-31) U/L ALT 15 (0-31) U/L Alkaline Phosphatase 67 (39-117) U/L Total Protein 6.7 (6.5-8.0) g/dL Albumin 4.0 (3.5-5.0) g/dL Lipase 16 (8-78) U/L Critical Care Time Critical Care Time Critical Care Time: No Discharge Plan Discharge Clinical Impression: Diverticulitis, Nausea Patient Disposition: Admitted As Inpatient
--- NOTE | 2021-10-23 19:48 | PM.IMHP ---
History of Present Illness Date of Service: 10/23/21 Attending physician on admission: Wilfrid Gonzalez Chief Complaint: diverticulitis 56 year old female with history of anxiety, migraine headaches, hx diverticulitis, and hyperlipidemia presented to ED today for evaluation of LLQ pain ongoing for 1 week. Reports she tried a clear liquid diet for several days with some improvement in her symptoms, however pain recurred. Called her PCP who prescribed augmentin. Pt took this for two days without improvement. Reporting 10/10 pain in the llq and across the low back as well as nasuea and headaches and chills. Was able to tolerate a few crackers this morning. Has been constipated an reports some hematochezia. No fevers, leukocytosis, anemia. CT abd/pelvis with acute sigmoid diverticulitis. No abscess or perforation. Review of Systems Review of Systems: General: No fevers, malaise, unintentional weight loss Cardiovascular: No chest pain, palpitations, or leg edema Respiratory: No shortness of breath, wheezing, cough GI: +abd pain, +constipation, +nausea, +brbpr. No vomiting, diarrhea, constipation, melena Neuro: No headaches, weakness, paresthesias Skin: No rashes or lesions [facility] Medical History (Updated 10/23/21 @ 19:59 by ZHANG Duran) Anxiety HLD (hyperlipidemia) Family History (Updated 10/23/21 @ 20:00 by ZHANG Duran) Mother Smoker Lung cancer Brother [place] (myocardial infarction) Surgical History H/O: hysterectomy Social History (Updated 03/18/21 @ 11:43 by Antonieta Lew DO) Alcohol intake: unknown Patient Tobacco Use Status: Never used Tobacco Advance Directives: No Advance Directives Information Provided: No Meds Allergies Allergy/AdvReac Type Severity Reaction Status Date / Time naproxen [NAPROXEN] Allergy Intermediate DIZZY Unverified 10/27/19 16:11 Naproxen Allergy Unknown Uncoded 09/27/10 00:00 Active Medications: Current Medications Acetaminophen (Acetaminophen 325 Mg Tablet) 650 mg PO Q6H PRN PRN Reason: Pain, Mild (Pain Scale 1-3) Enoxaparin Sodium (Enoxaparin Sodium 40 Mg/0.4 Ml Syringe) 40 mg SUBCUT Q24H COUNTS INCLUDE 234 BEDS AT THE [facility] Hydromorphone HCl (Hydromorphone Hcl 0.5 Mg/0.5 Ml Syringe) 0.5 mg IVPUSH Q4H PRN; Protocol PRN Reason: Pain, Severe (Pain Scale 7-10) Levofloxacin (Levaquin) 750 mg in 150 mls @ 100 mls/hr IV Q24H COUNTS INCLUDE 234 BEDS AT THE [facility] Stop: 10/27/21 21:14 Metronidazole (Flagyl) 500 mg in 100 mls @ 100 mls/hr IV Q8H COUNTS INCLUDE 234 BEDS AT THE [facility] Stop: 10/28/21 12:44 Oxycodone HCl (Oxycodone Hcl Immed Release 5 Mg Tablet) 5 mg PO Q6H PRN PRN Reason: Pain, Moderate (Pain Scale 4-6 Pharmacy Consult (Consult Rx Perform Med Rec) 1 each MISCELLANE ONCE PRN PRN Reason: Consult order Sodium Chloride (0.9 % Sodium Chloride Flush 3 Ml Syringe) 3 ml IVFLUSH QSHIFT COUNTS INCLUDE 234 BEDS AT THE [facility] Physical Exam Vital Signs and Narrative: Vital Signs: Last Vital Signs Temp 97.7 F 10/23/21 13:18 Pulse 100 10/23/21 13:18 Resp 18 10/23/21 13:18 BP 155/89 H 10/23/21 13:18 Pulse Ox 98 10/23/21 13:18 O2 Del Method 10/23/21 13:18 BMI result Body Mass Index 31.7 Constitutional - Awake and Alert, No apparent distress Eyes - PERRLA, EOMI Cardiovascular - S1S2, RRR, No edema Respiratory - Normal lung expansion, Normal respiratory effort, No respiratory distress, CTA bilaterally Gastrointestinal - TTP LLQ with voluntary guarding. ND; +BS; No rebound Extremities - no calf tenderness bilaterally, no swelling Musculoskeletal - Normal inspection, normal ROM Skin - Warm/Dry Neurological - Alert & oriented x3, CN II-XII in tact Psychological - Appropriate affect Results Labs CBC and Chem 7: 10/23/21 13:35 10/23/21 13:35 Labs: Laboratory Results - last 24 hr 10/23/21 10/23/21 10/23/21 13:35 13:35 13:35 MCV 92.4 MCH 30.1 MCHC 32.5 RDW 12.1 Plt Count 227 MPV 10.4 Immature Gran % (Auto) 0.3 Neut % (Auto) 74.7 H Lymph % (Auto) 13.7 L [place] % (Auto) 9.2 Eos % (Auto) 1.8 Baso % (Auto) 0.3 Lymph # (Auto) 1.3 [place] # (Auto) 0.9 Eos # (Auto) 0.2 Baso # (Auto) 0.0 Abs Immat Gran (auto) 0.03 Absolute Neuts (auto) 7.3 Absolute Nucleated RBC 0.000 Nucleated RBC % (auto) 0.0 Anion Gap 15 Estim Creat Clear Calc 88.9 Estimated GFR > 60 Random Glucose 97 Lactic Acid 1.0 Calcium 9.2 Total Bilirubin 0.5 Direct Bilirubin 0.2 AST 16 ALT 15 Alkaline Phosphatase 67 Total Protein 6.7 Albumin 4.0 Lipase 16 Imaging Radiologist's Impressions: Impressions Abdomen/Pelvis CT 10/23/21 14:52 IMPRESSION: Findings are most suspicious for acute sigmoid diverticulitis. Other chronic findings as above. Assessment and Plan (1) Diverticulitis: Status: Acute Plan 56 year old female with history of anxiety, migraine headaches, hx diverticulitis, and hyperlipidemia presented to ED today for evaluation of LLQ pain admitted for diverticulitis having failed outpt therapy. 1- Acute sigmoid diverticulitis -IV flagyl and IV metronidazole -Clear liquid diet to be advanced as tolerated -Ondansetron prn for nausea -Oxycodone and dilaudid per sliding scale for pain -IVF 2-Constipation -Docusate prn 3-HLD -Continue atorvastatin 4-Migraines -Fioricet prn 5-Anxiety -Continue home meds DVT prophylaxis- Lovenox Full code Pt requires inpt stay of at least 2 midnights for treatment of diverticulitis requiring IV abx after failing oral meds outpt. Quality Stroke Does the patient have a stroke diagnosis?: No VTE Prior VTE?: No VTE Risk Level:: Medical - moderate - high VTE Device Contraindication: Treatment Not Indicated VTE Drug Contraindication: N/A - Med Ordered
[2021-10-23] MEDS: metroNIDAZOLE 500 MG TABLET PO (20:41)
[2021-10-23] MEDS: 0.9 % Sodium Chloride 1,000 ML 999 ML IV (20:41)
[2021-10-23] MEDS: Acetaminophen 325 MG TABLET 650 MG PO (20:41)
[2021-10-23] MEDS: levoFLOXacin/D5W 750 MG/150 ML PIGGYBACK 100 MG IV (20:41)
[2021-10-23] MEDS: Docusate Sodium 100 MG CAPSULE PO (20:41)
[2021-10-23] MEDS: Morphine Sulfate 4 MG/ML CARTRIDGE IVPUSH (20:42)
[2021-10-23] MEDS: ondansetron HCL 4 MG/2 ML VIAL IVPUSH (20:44)
[2021-10-24] MEDS: Enoxaparin Sodium 40 MG/0.4 ML SYRINGE SUBCUT ×2 (00:02→21:46)
[2021-10-24] MEDS: HYDROmorphone HCl 0.5 MG/0.5 ML SYRINGE IVPUSH ×4 (01:52→18:32)
[2021-10-24] MEDS: ondansetron HCL 4 MG/2 ML VIAL IVPUSH ×2 (01:57→08:28)
[2021-10-24] MEDS: Acetaminophen 325 MG TABLET 650 MG PO (03:00)
[2021-10-24 03:20] VITALS: BP 122/78; PULSE 99; RESP 18; TEMP 37.1; O2SAT 100
[2021-10-24] MEDS: metroNIDAZOLE/NS 500 MG/100 ML PIGGYBACK 100 MG IV ×3 (06:35→21:46)
[2021-10-24 07:11] LABS: COVID-19 Test Negative (Negative)
--- NOTE | 2021-10-24 08:36 | PC.NURSE ---
pt alert and oriented, skin pwd, respirations even and unlabored, pt reports having a terrible headache 8/10 some nausea and 5/10 pain for the abd. at this time dr rosado at bedside with change the pt's diet from liquid diet to bland diet and also will change the motrin to fioricet. pt does not want anything at this time for the abd pain
--- NOTE | 2021-10-24 08:42 | PC.NURSE ---
called to give report to med/surgical nurse awaiting a call back
--- NOTE | 2021-10-24 08:50 | PHA.MEDREC ---
Pharmacy Consult ? Medication Reconciliation Pharmacy has REVIEWED the medication reconciliation done by ISRAEL Sears. Needed clarification, spoke to patient. Patient states she has stopped the venlafaxine.
[2021-10-24] MEDS: Butalb/Acetamin/Caff 50/325/40 TABLET 1 TAB PO ×3 (09:02→17:14)
[2021-10-24 09:03] VITALS: BP 114/50; PULSE 81; RESP 18; O2SAT 97
--- NOTE | 2021-10-24 09:27 | HO.PM.IMPN ---
Subjective Subjective Date of Service: 10/24/21 Interval History: cC: headache interval history:migraines Cardiovascular Cardiovascular: Reports no additional cardiovascular complaints Respiratory Respiratory: Reports no additional respiratory complaints Physical Exam Vital Signs: Vital Signs: Last Vital Signs Temp 98.8 F 10/24/21 03:20 Pulse 81 10/24/21 09:03 Resp 18 10/24/21 09:03 BP 114/50 L 10/24/21 09:03 Pulse Ox 97 10/24/21 09:03 O2 Del Method 10/24/21 09:03 BMI result Body Mass Index 31.7 General: AO X 3, in distress Resp: CTA bilateral, no accessory muscles used CVS: S1,S2,RRR GI: soft, LLQ tender, non distended Neuro: motor grossly intact, alert Psych: appropriate affect, appropriate insight Objective Data Active Medications Acetaminophen (Acetaminophen 325 Mg Tablet) 650 mg PO Q6H PRN PRN Reason: Pain, Mild (Pain Scale 1-3) Last Admin: 10/24/21 03:00 Dose: 650 mg Documented By: JACKELIN Acetaminophen/Butalbital/Caffeine (Butalb/Acetamin/Caff 50/325/40 Tablet) 1 tab PO Q4H PRN PRN Reason: migraine Last Admin: 10/24/21 09:02 Dose: 1 tab Documented By: JOS Docusate Sodium (Docusate Sodium 100 Mg Capsule) 100 mg PO BID PRN PRN Reason: Constipation Last Admin: 10/23/21 20:41 Dose: 100 mg Documented By: VINITA Enoxaparin Sodium (Enoxaparin Sodium 40 Mg/0.4 Ml Syringe) 40 mg SUBCUT Q24H YURIY Last Admin: 10/24/21 00:02 Dose: 40 mg Documented By: TATIANA Hydromorphone HCl (Hydromorphone Hcl 0.5 Mg/0.5 Ml Syringe) 0.5 mg IVPUSH Q4H PRN; Protocol PRN Reason: Pain, Severe (Pain Scale 7-10) Last Admin: 10/24/21 01:52 Dose: 0.5 mg Documented By: JACKELIN Levofloxacin (Levaquin) 750 mg in 150 mls @ 100 mls/hr IV Q24H YURIY Stop: 10/28/21 21:29 Metronidazole (Flagyl) 500 mg in 100 mls @ 100 mls/hr IV Q8H [facility] Stop: 10/28/21 22:59 Last Infusion: 10/24/21 07:36 Dose: 100 mls/hr Documented By: DONATO Ondansetron HCl (Ondansetron Hcl 4 Mg/2 Ml Vial) 4 mg IVPUSH Q6H PRN PRN Reason: nasuea Last Admin: 10/24/21 08:28 Dose: 4 mg Documented By: JOS Oxycodone HCl (Oxycodone Hcl Immed Release 5 Mg Tablet) 5 mg PO Q6H PRN PRN Reason: Pain, Moderate (Pain Scale 4-6 Pharmacy Consult (Consult Rx Perform Med Rec) 1 each MISCELLANE ONCE PRN PRN Reason: Consult order Sodium Chloride (0.9 % Sodium Chloride Flush 3 Ml Syringe) 3 ml IVFLUSH QSHIFT [facility] Last Admin: 10/24/21 07:30 Dose: Not Given Documented By: DONATO Non-Admin Reason: IV Running Labs CBC & Chem 7: 10/23/21 13:35 10/23/21 13:35 Labs: Laboratory Results - last 24 hr 10/23/21 10/23/21 10/23/21 13:35 13:35 13:35 MCV 92.4 MCH 30.1 MCHC 32.5 RDW 12.1 Plt Count 227 MPV 10.4 Immature Gran % (Auto) 0.3 Neut % (Auto) 74.7 H Lymph % (Auto) 13.7 L [place] % (Auto) 9.2 Eos % (Auto) 1.8 Baso % (Auto) 0.3 Lymph # (Auto) 1.3 [place] # (Auto) 0.9 Eos # (Auto) 0.2 Baso # (Auto) 0.0 Abs Immat Gran (auto) 0.03 Absolute Neuts (auto) 7.3 Absolute Nucleated RBC 0.000 Nucleated RBC % (auto) 0.0 Anion Gap 15 Estim Creat Clear Calc 88.9 Estimated GFR > 60 Random Glucose 97 Lactic Acid 1.0 Calcium 9.2 Total Bilirubin 0.5 Direct Bilirubin 0.2 AST 16 ALT 15 Alkaline Phosphatase 67 Total Protein 6.7 Albumin 4.0 Lipase 16 COVID-19 (DRU) COVID-19 Clin Com 10/24/21 06:39 MCV MCH MCHC RDW Plt Count MPV Immature Gran % (Auto) Neut % (Auto) Lymph % (Auto) [place] % (Auto) Eos % (Auto) Baso % (Auto) Lymph # (Auto) [place] # (Auto) Eos # (Auto) Baso # (Auto) Abs Immat Gran (auto) Absolute Neuts (auto) Absolute Nucleated RBC Nucleated RBC % (auto) Anion Gap Estim Creat Clear Calc Estimated GFR Random Glucose Lactic Acid Calcium Total Bilirubin Direct Bilirubin AST ALT Alkaline Phosphatase Total Protein Albumin Lipase COVID-19 (DRU) Negative COVID-19 Clin Com See Note Assessment and Plan (1) Anxiety: Status: Acute Plan 56F with PMH anxiety, 2 previous episodes diverticulitis, hld, migraines, presented with abd pain, found to have acute sigmoid diverticulitis Acute sigmoid diverticulitis Continue IV Levaquin and Flagyl Advance to bland diet Pain control outpatient GI follow up Migraine Fioricet Anxiety Ativan p.r.n. Hyperlipidemia Statin DVT prophylaxis with Lovenox Full code reason for continued hospitalization: still in significant pain, requires iv opiates, not tolerating solids Quality Stroke Does the patient have a stroke diagnosis?: No VTE Prior VTE?: No VTE Risk Level:: Medical - moderate - high VTE Device Contraindication: Treatment Not Indicated VTE Drug Contraindication: N/A - Med Ordered
--- NOTE | 2021-10-24 10:21 | PC.NURSE ---
report given to aniket self at med/surg
[2021-10-24 10:42] VITALS: BP 115/58; PULSE 70; RESP 17; TEMP 36.6; O2SAT 96
--- NOTE | 2021-10-24 13:40 | MHC.CM.PN ---
Met with patient for Case Management assessment. Lives @ home w/ . No services prior to admission. to transport @ d/c. D/C plan- home no services.
[2021-10-24 16:00] VITALS: BP 117/59; PULSE 90; RESP 16; TEMP 36.8; O2SAT 99
[2021-10-24] MEDS: LORazepam 0.5 MG TABLET PO ×2 (18:37→19:56)
[2021-10-24 19:48] VITALS: BP 131/80; PULSE 72; RESP 18; TEMP 36.2; O2SAT 98
[2021-10-24] MEDS: levoFLOXacin/D5W 750 MG/150 ML PIGGYBACK 100 MG IV (19:56)
[2021-10-24] MEDS: 0.9 % Sodium Chloride Flush 3 ML SYRINGE IVFLUSH (21:46)
[2021-10-24 23:25] VITALS: BP 97/58; PULSE 77; RESP 18; TEMP 36.3; O2SAT 98
--- NOTE | 2021-10-25 00:27 | MHC.PIE ---
p; pt c/o heartburn asking for medication i; dr collier notified; new order tums prn e; will cont to monitor
[2021-10-25] MEDS: HYDROmorphone HCl 0.5 MG/0.5 ML SYRINGE IVPUSH (02:47)
[2021-10-25 03:18] VITALS: BP 110/56; PULSE 81; RESP 16; TEMP 36.6; O2SAT 93
[2021-10-25] MEDS: metroNIDAZOLE/NS 500 MG/100 ML PIGGYBACK 100 MG IV (06:23)
[2021-10-25 06:26] LABS: Hematocrit 36.2 % (37.0-47.0); Mean Corpuscular HGB Conc 33.1 g/dl (31.0-35.0); Mean Corpuscular Hemoglobin 30.7 pg (27.0-33.0); Mean Corpuscular Volume 92.6 fL (80.0-98.0); Mean Platelet Volume 10.9 fL (9.4-12.3); Platelet Count 221 X10*3/uL (160-400); Red Blood Count 3.91 X10*6/uL (4.20-5.50); White Blood Count 5.7 X10*3/uL (4.8-10.8)
[2021-10-25 07:11] LABS: Anion Gap 14 (12-20); Blood Urea Nitrogen 7 mg/dL (9-16); Calcium 8.6 mg/dL (8.4-10.2); Carbon Dioxide 24 mmol/L (22-29); Chloride 106 mmol/L (96-108); Creatinine Clr Calc Pharmacy 86.6; Estimated Glomerular Filt Rate > 60; Glucose Fasting 115 mg/dL (60-99); Potassium 3.8 mmol/L (3.3-5.1); Sodium 140 mmol/L (135-145)
[2021-10-25 08:00] VITALS: BP 110/67; PULSE 74; RESP 18; TEMP 36.1; O2SAT 96
[2021-10-25] MEDS: 0.9 % Sodium Chloride Flush 3 ML SYRINGE IVFLUSH (08:14)
[2021-10-25] MEDS: Acetaminophen 325 MG TABLET 650 MG PO (08:14)
--- NOTE | 2021-10-25 09:52 | P.DS_ITS ---
DS: Providers Provider Date of Service: 10/25/21 Date of admission: 10/23/21 19:38 Primary care physician: Deloris Worley MD DS: Diagnosis Discharge Diagnosis (1) Anxiety: Status: Acute DS: Summary Hospital Course Hospital Course: from initial hpi: Chief Complaint: diverticulitis 56 year old female with history of anxiety, migraine headaches, hx diverticulitis, and hyperlipidemia presented to ED today for evaluation of LLQ pain ongoing for 1 week. Reports she tried a clear liquid diet for several days with some improvement in her symptoms, however pain recurred. Called her PCP who prescribed augmentin. Pt took this for two days without improvement. Reporting 1 0/10 pain in the llq and across the low back as well as nasuea and headaches and chills. Was able to tolerate a few crackers this morning. Has been constipated an reports some hematochezia. No fevers, leukocytosis, anemia. CT abd/pelvis with acute sigmoid diverticulitis. No abscess or perforation. hospitla course: Patient was admitted for acute sigmoid diverticulitis. She was treated with IV Levaquin and Flagyl, her pain improved and she was advanced to solid diet. On discharge she will be given 7 more days of p.o. Augmentin. She will follow up with Gastroenterology as outpatient as this is her 3rd episode. For her migraine she was given Fioricet. For anxiety she used Ativan p.r.n.. For hyperlipidemia she was continued on statin. Patient is feeling better will be discharged home. Time Spent with Patient Time attestation: Total time spent providing and/or coordinating discharge services: Discharge coordination time: Greater than 30 minutes Quality: Safe Use of Opioids Does Pt have an Active Cancer Diagnosis on the Problem List?: No Quality: Stroke Does the patient have a stroke diagnosis?: No Physical Exam Vital Signs: Vital Signs: Last Vital Signs Temp 97.0 F 10/25/21 08:00 Pulse 74 10/25/21 08:00 Resp 18 10/25/21 08:00 BP 110/67 10/25/21 08:00 Pulse Ox 96 10/25/21 08:00 O2 Del Method 10/25/21 08:00 BMI result Body Mass Index 31.7 General: AO X 3, no acute distress Resp: CTA bilateral, no accessory muscles used CVS: S1,S2,RRR GI: soft, non tender, non distended Neuro: motor grossly intact, alert Psych: appropriate affect, appropriate insight DS: Data Data Completed and Pending Labs on day of discharge: Laboratory Results - last 24 hr 10/25/21 10/25/21 05:20 05:20 WBC 5.7 RBC 3.91 L Hgb 12.0 Hct 36.2 L MCV 92.6 MCH 30.7 MCHC 33.1 RDW 12.0 Plt Count 221 MPV 10.9 Absolute Nucleated RBC 0.000 Nucleated RBC % (auto) 0.0 Sodium 140 Potassium 3.8 Chloride 106 Carbon Dioxide 24 Anion Gap 14 BUN 7 L Creatinine 0.76 Estim Creat Clear Calc 86.6 Estimated GFR > 60 Fasting Glucose 115 H Calcium 8.6 D Preliminary micro results at discharge 10/23/21 20:25 Blood Culture - Preliminary Blood - Venous No growth after 24 hours. 10/23/21 19:19 Blood Culture - Preliminary Blood - Venous No growth after 24 hours. Discharge Plan Discharge Patient Disposition: Home, Self-Care Discharge Diagnosis: diverticulitis Referrals: Quin Nunes MD [Physician] - 2 days Deloris Worley MD [Primary Care Provider] - 1 Week Discharge Medications: New amoxicillin-pot clavulanate 875-125 mg tablet 1 tab PO Q12H Qty: 14 0RF Continued hzoyxhdmpy-mtkjlivwqdclo-hvdw [Fioricet] 50-300-40 mg capsule 1 cap PO Q4-6H PRN (Reason: pain) 5 Days Qty: 20 0RF atorvastatin 10 mg tablet 1 tab PO DAILY lorazepam 0.5 mg tablet 1 tab PO TID meclizine 25 mg tablet 1 tab PO BID Discontinued amoxicillin-pot clavulanate 500-125 mg tablet 1 tab PO BID Discharge Orders: Discharge Order (Routine); Ordered 10/25/21 Ordered By: Wilfrid Gonzalez Diet: Advance to usual diet Activity on Discharge: As tolerated Stand Alone Forms: Patient Portal Discharge page Care Plan Goals: recovery Health Concerns: diverticulitis Plan of Treatment: 7 more days augmentin, follow up gi Assessment: see above Patient Instructions: Diverticulitis (ED), Diverticulitis Diet (ED)
--- NOTE | 2021-10-25 10:16 | MHC.CM.PN ---
PT MEDICALLY CLEARED TO D/C HOME SELF-CARE W/FAMILY FOR TRANSPORT
[2021-10-25 12:00] VITALS: BP 124/59; PULSE 69; RESP 18; TEMP 35.9; O2SAT 97
== END 2021-10-25 13:27 | disposition home or self-care (01) | DRG 244 ==
LOC: HO.ED 18:09 → HO.EDOVER 19:54 → HO.S3 10-24 08:06
PROVIDERS: Emergency Medicine; Physician Assistant; Admitting Provider Physician Assistant; Emergency Provider Emergency Medicine Emergency Medical Services; PCP Internal Medicine; Visit Provider Internal Medicine
DX: K57.32 Diverticulitis of large intestine without perforation or abscess without bleeding (principal); E78.5 Hyperlipidemia, unspecified; G43.909 Migraine, unspecified, not intractable, without status migrainosus; F41.9 Anxiety disorder, unspecified; Z20.822 Contact with and (suspected) exposure to COVID-19; Z90.710 Acquired absence of both cervix and uterus; Z79.899 Other long term (current) drug therapy
CPT/HCPCS: 36415; 74176; 80048; 80076; 83605; 83690; 85025; 85027; 87040; 87635; 99285; J1170; J1650; J1956; J2270; J2405

== ENCOUNTER → 2022-07-15 12:50 | Outpatient (BNVA) | payer BC, SELFPAY | PROVIDERS: PCP Internal Medicine; Visit Provider Internal Medicine ==

== ENCOUNTER 2022-08-28 12:19 | Day surgery (SDC) | payer BC, SELFPAY ==
--- NOTE | 2022-08-27 13:48 | HO.ANESPROP2 ---
Documented by User: Destiney Corrales NP 08/27/22 13:48 HPI - Anesthesia Eval Consult details Narrative: 57yo F for Colonoscopy PMFSH Active Problems Active Problems: All Active Problems (Updated 07/15/22 @ 14:42 by Janna Hudson MD) Diverticulitis (Acute) Nausea (Acute) Diverticulosis (Acute) History of diverticulitis (Acute) Anxiety (Acute) Past Medical History Medical History (Updated 07/15/22 @ 14:42 by Janna Hudson MD) Anxiety HLD (hyperlipidemia) Family History Family History Mother Smoker Lung cancer Brother [place] (myocardial infarction) Surgical History Surgical History (Updated 08/28/22 @ 12:42 by Danni Ibrahim RN) H/O: hysterectomy History of bladder suspension procedure Hx of blepharoplasty Hx of colonoscopy Hx of elbow surgery Social History Social History Household Members: Spouse Housing: House Do you presently have visiting nurse or other home services: No Alcohol intake: never Patient Tobacco Use Status: Never used Tobacco Substance Use Type: Marijuana service: No Current occupational status: employed Meds Allergies Allergy/AdvReac Type Severity Reaction Status Date / Time No Known Allergies Allergy Verified 08/28/22 12:42 Home Medications Medication Instructions Recorded Confirmed Last Taken Type atorvastatin 10 mg tablet 1 tab PO DAILY 10/23/21 08/28/22 Unknown History lorazepam 0.5 mg tablet 1 tab PO TID 10/23/21 08/28/22 Unknown History albuterol sulfate 90 mcg/actuation 1 - 2 puff inhalation Q4-6H PRN 07/15/22 08/28/22 Unknown History aerosol inhaler wheezing escitalopram oxalate 10 mg tablet 10 mg PO DAILY 07/15/22 08/28/22 Unknown History (Lexapro) clonidine HCl 0.1 mg tablet 0.3 mg PO BEDTIME 08/28/22 08/28/22 Unknown History Exam Exam Date and Time: August 27, [id number] Assessment and Plan Assessment Anesthesia Assessment: Chart Reviewed Documented by User: Quin Streeter MD 08/28/22 13:04 [facility] Past Medical History Medical History (Updated 07/15/22 @ 14:42 by Janna Hudson MD) Anxiety HLD (hyperlipidemia) Family History Family History Mother Smoker Lung cancer Brother [place] (myocardial infarction) Surgical History Surgical History (Updated 08/28/22 @ 12:42 by Danni Ibrahim RN) H/O: hysterectomy History of bladder suspension procedure Hx of blepharoplasty Hx of colonoscopy Hx of elbow surgery History of Problems with Anesthesia: No Social History Social History Household Members: Spouse Housing: House Do you presently have visiting nurse or other home services: No Alcohol intake: never Patient Tobacco Use Status: Never used Tobacco Substance Use Type: Marijuana service: No Current occupational status: employed Meds Allergies Allergy/AdvReac Type Severity Reaction Status Date / Time No Known Allergies Allergy Verified 08/28/22 12:42 Home Medications Medication Instructions Recorded Confirmed Last Taken Type atorvastatin 10 mg tablet 1 tab PO DAILY 10/23/21 08/28/22 Unknown History lorazepam 0.5 mg tablet 1 tab PO TID 10/23/21 08/28/22 Unknown History albuterol sulfate 90 mcg/actuation 1 - 2 puff inhalation Q4-6H PRN 07/15/22 08/28/22 Unknown History aerosol inhaler wheezing escitalopram oxalate 10 mg tablet 10 mg PO DAILY 07/15/22 08/28/22 Unknown History (Lexapro) clonidine HCl 0.1 mg tablet 0.3 mg PO BEDTIME 08/28/22 08/28/22 Unknown History Exam Airway Mallampati Class: II TM Dist: >3cm Neck ROM: Full Loose/Missing/Broken Teeth: No Heart: RRR Lungs: CTA Assessment and Plan Assessment Anesthesia Assessment: Anesthesia Plan Discussed Final Anesthetic Review History of Problems with Anesthesia: No NPO: Yes ASA Class: II Final Preanesthetic Review: Meds/Allgs Chart Reviewed, Consent Obtained/Reviewed and Anes Risks/Benef Reviewed Patient Risk: Low Procedure Risk: Low Anesthetic Plan Anesthetic Plan: MAC: Disposition: Standard PACU
[2022-08-28 12:43] VITALS: BMI 30.6
[2022-08-28 12:52] VITALS: BP 125/44; PULSE 69; RESP 15; TEMP 36.3; O2SAT 95
[2022-08-28] MEDS: Lactated Ringers 1,000 ML 100 ML IVCONT (13:07)
--- NOTE | 2022-08-28 13:08 | MHC.SHP ---
Pre-Procedural Eval Section A Date of Service: 08/28/22 Section B Chief Complaint: Diverticulosis of intestine, part unspecified, Details of Present Illness: PMH: Anxiety HLD (hyperlipidemia) Surgical History H/O: hysterectomy Hx of colonoscopy Family History Mother Smoker Lung cancer Brother [place] (myocardial infarction) Present Medications: see Short Stay Collaborative assessment Allergies: Allergies Allergy/AdvReac Type Severity Reaction Status Date / Time No Known Allergies Allergy Verified 08/28/22 12:42 Review of Systems Review of Systems Comment: Ten point ROS negative Exam Exam Comment: Gen appear: No acute distress HEENT: no icterus Chest: No overt resp distress Abd: soft, nontender, nondistended Psych: Stable affect, answering questions appropriately Neuro: A/Ox3 noted to move all extremities spontaneously Ext: no peripheral edema Plan Diagnosis/Plan: Unchanged I have reviewed the history and physical and performed a pertinent physical examination on my patient. No changes have occurred unless specified. Time Spent With Patient Time: Total time managing care of this patient today ____ minutes.
--- NOTE | 2022-08-28 13:14 | P.OP_ITS ---
Operative Note Operative Note Date of Service: 08/28/22 Narrative: Procedure: Colonoscopy Indication: History of diverticulitis Endoscopist: Janna Hudson MD Anesthesia Provider: Becky Gonzales CRNA Anesthesia type: MAC Instrument: Olympus [id number]-H190L Consent: Indication, risks vs benefits, and alternatives were discussed with the patient who gave written informed consent to proceed. EKG, pulse, pulse oximetry and blood pressure were monitored throughout the procedure. Please see anesthesia flowsheet. Procedure: The patient was brought to the procedure room and placed in the left lateral decubitus position. IV medications were administered by the anesthesia provider in attendance. A digital rectal exam was performed which was normal. A distal attachment cap was affixed to the tip of the scope and the colonoscope was then inserted through the anus and advanced through the colon to the cecum at 75 cm,and terminal ileum. Appendiceal orifice and ileocecal valve were identified. Mucosa was carefully examined under high definition white light as the instrument was slowly withdrawn in a retrograde panoramic fashion. Retroflexion was performed in rectum. The procedure was not difficult. There were no immediate obvious complications. The quality of the prep was BBPS: 3+2+3 = adequate Withdrawal time 20 minutes. Limitations: No limitations. Findings: Mucosa: Normal to cecum and terminal ileum. Protruding lesions: * 1 sessile polyp of size 8 mm in descending colon. Cold snare polypectomy was performed. The polyp was completely removed and retrieved. * 1 semi-pedunculated polyp of size 20 mm in sigmoid colon at 20 cm. A previous tattoo was noted in this area. Piece-meal hot snare polypectomy was performed. The polyp was completely removed and retrieved. A Resolution ultra clip was placed at the polypectomy site to prevent post-polypectomy bleeding. * Medium internal hemorrhoids without stigmata of recent bleeding. Excavated lesions: * Diffuse diverticulosis of left sided colon. Impression: 1. Normal colon and terminal mucosa 2. Total of 2 polyps removed from descending, and sigmoid colon. 3. Previous tattoo at 20 cm 4. Internal hemorrhoids 5. Diverticulosis Recommendations: - Follow path results. - Flexible sigmoidoscopy in 6 months to follow up on the piece-meal polypectomy.
[2022-08-28 14:01] VITALS: BP 95/40; PULSE 84; RESP 16; O2SAT 95
[2022-08-28 14:16] VITALS: BP 89/47; PULSE 66; RESP 16; O2SAT 98
[2022-08-28 14:31] VITALS: BP 91/44; PULSE 61; RESP 16; O2SAT 98
[2022-08-28 14:46] VITALS: BP 102/57; PULSE 69; RESP 16; O2SAT 98
[2022-08-28] MEDS: Acetaminophen 325 MG TABLET 650 MG PO (14:53)
== END 2022-08-28 15:31 | disposition home or self-care (01) ==
PROVIDERS: PCP Internal Medicine; Visit Provider Internal Medicine
PROC: 0DJD8ZZ Inspection of Lower Intestinal Tract, Via Natural or Artificial Opening Endoscopic (ICD-10-PCS; CPT 45378; principal; 2022-08-28 14:10)
DX: D12.4 Benign neoplasm of descending colon (principal); D12.5 Benign neoplasm of sigmoid colon; K57.30 Diverticulosis of large intestine without perforation or abscess without bleeding; K64.8 Other hemorrhoids; E78.5 Hyperlipidemia, unspecified; F12.90 Cannabis use, unspecified, uncomplicated; Z90.710 Acquired absence of both cervix and uterus; Z87.19 Personal history of other diseases of the digestive system
CPT/HCPCS: 45385; 88305

== ENCOUNTER → 2022-08-28 12:19 | Outpatient (BNV) | payer BC, SELFPAY | PROVIDERS: PCP Internal Medicine; Visit Provider Internal Medicine | DX: Z87.19 Personal history of other diseases of the digestive system (principal); D12.4 Benign neoplasm of descending colon; D12.5 Benign neoplasm of sigmoid colon; K57.30 Diverticulosis of large intestine without perforation or abscess without bleeding; K64.8 Other hemorrhoids | CPT/HCPCS: 45385 ==

== ENCOUNTER 2023-02-20 12:47 | Day surgery (SDC) | payer BC, SELFPAY ==
--- NOTE | 2023-02-19 10:25 | P.CONAN_ITS ---
Documented by User: Destiney Corrales NP 02/19/23 10:26 HPI - Anesthesia Eval Consult details Narrative: 57yo F for Sigmoidoscopy Flexible PMFSH Active Problems Active Problems: All Active Problems (Updated 07/15/22 @ 14:42 by Janna Hudson MD) History of diverticulitis (Acute) Diverticulosis (Acute) Nausea (Acute) Diverticulitis (Acute) Anxiety (Acute) Past Medical History Medical History Anxiety HLD (hyperlipidemia) Family History Family History Mother Smoker Lung cancer Brother [place] (myocardial infarction) Surgical History Surgical History Hx of elbow surgery Hx of blepharoplasty History of bladder suspension procedure Hx of colonoscopy H/O: hysterectomy History of Problems with Anesthesia: No Social History Social History Household Members: Spouse Housing: House Do you presently have visiting nurse or other home services: No Alcohol intake: never Patient Tobacco Use Status: Never used Tobacco Substance Use Type: Marijuana Substance Use Frequency: Occasionally Are you DNR?: No Advance Directives: No Advance Directives Information Provided: Yes Nutrition Risks: No Nutritional Risk service: No Current occupational status: employed Meds Allergies Allergy/AdvReac Type Severity Reaction Status Date / Time No Known Allergies Allergy Verified 02/20/23 13:16 Home Medications Medication Instructions Recorded Confirmed Last Taken Type atorvastatin 10 mg tablet 1 tab PO DAILY 10/23/21 02/20/23 Unknown History lorazepam 0.5 mg tablet 1 tab PO TID 10/23/21 02/20/23 Unknown History escitalopram oxalate 10 mg tablet 10 mg PO DAILY 07/15/22 02/20/23 Unknown History (Lexapro) clonidine HCl 0.1 mg tablet 0.3 mg PO BEDTIME 08/28/22 02/20/23 Unknown History Assessment and Plan Assessment Anesthesia Assessment: Chart Reviewed Final Anesthetic Review History of Problems with Anesthesia: No Documented by User: Joan Darnell MD 02/20/23 13:47 PMFSH Past Medical History Medical History Anxiety HLD (hyperlipidemia) Family History Family History Mother Smoker Lung cancer Brother [place] (myocardial infarction) Family history of problems with anesthesia: No Surgical History Surgical History Hx of elbow surgery Hx of blepharoplasty History of bladder suspension procedure Hx of colonoscopy H/O: hysterectomy Social History Social History Household Members: Spouse Housing: House Do you presently have visiting nurse or other home services: No Alcohol intake: never Patient Tobacco Use Status: Never used Tobacco Substance Use Type: Marijuana Substance Use Frequency: Occasionally Are you DNR?: No Advance Directives: No Advance Directives Information Provided: Yes Nutrition Risks: No Nutritional Risk service: No Current occupational status: employed Meds Allergies Allergy/AdvReac Type Severity Reaction Status Date / Time No Known Allergies Allergy Verified 02/20/23 13:16 Home Medications Medication Instructions Recorded Confirmed Last Taken Type atorvastatin 10 mg tablet 1 tab PO DAILY 10/23/21 02/20/23 Unknown History lorazepam 0.5 mg tablet 1 tab PO TID 10/23/21 02/20/23 Unknown History escitalopram oxalate 10 mg tablet 10 mg PO DAILY 07/15/22 02/20/23 Unknown Histo ry (Lexapro) clonidine HCl 0.1 mg tablet 0.3 mg PO BEDTIME 08/28/22 02/20/23 Unknown History Exam Airway Mallampati Class: II TM Dist: >3cm Neck ROM: Full Heart: rrr Lungs: cta Assessment and Plan Assessment Anesthesia Assessment: Anesthesia Plan Discussed Final Anesthetic Review Family History of Problems with Anesthesia: No NPO: Yes ASA Class: II Final Preanesthetic Review: No Changes in Pt Med Stat, Meds/Allgs Chart Reviewed and Consent Obtained/Reviewed Patient Risk: Intermediate Procedure Risk: Intermediate Anesthetic Plan Anesthetic Plan: MAC: Disposition: Standard PACU
[2023-02-20] MEDS: Lactated Ringers 1,000 ML 100 ML IVCONT (13:35)
[2023-02-20 13:41] VITALS: BMI 30.8
[2023-02-20 13:42] VITALS: BP 105/68; PULSE 80; RESP 18; TEMP 36.7; O2SAT 96
--- NOTE | 2023-02-20 13:45 | MHC.SHP ---
Pre-Procedural Eval Section A Date of Service: 02/20/23 The patient is an INPATIENT: No The History & Physical has been completed within 30 days and I have reviewed it.: No Section B Chief Complaint: Surveillance for colon polyps Relevant Family History (Specify if Yes): No Relevant Social History: None Present Medications: see Short Stay Collaborative assessment Medical History: Significant History (Anxiety HLD (hyperlipidemia)) History of Previous Operations: Relevant previous surgery/procedure and date(s) (H/O: hysterectomy Hx of colonoscopy) Allergies: Allergies Allergy/AdvReac Type Severity Reaction Status Date / Time No Known Allergies Allergy Verified 02/20/23 13:16 Review of Systems Sugical H&P ROS: Negative: Constitution, Cardiovascular, Respiratory and Gastrointestinal Exam Surgical H&P Exam: Normal: Heart, Normal: Lungs, Normal: Extremities and Normal: Abdomen Plan Diagnosis/Plan: Unchanged I have reviewed the history and physical and performed a pertinent physical examination on my patient. No changes have occurred unless specified. Time Spent With Patient Time: Total time managing care of this patient today ____ minutes.
[2023-02-20] MEDS: Sodium Phosphate,Mono-Dibasic 133 ML ENEMA PR (13:52)
--- NOTE | 2023-02-20 14:32 | W.PM.OPN ---
Operative Note Operative Note Date of Service: 02/20/23 Narrative: FLEXIBLE SIGMOIDOSCOPY TILL 30 CMS Pre-op diagnosis: Follow-up of sigmoid colon polyp Post-op diagnosis:? Diverticulosis, hemorrhoids Endoscopist:? Sergio Shea MD Anesthesia:?MAC Consent: Indications for the procedure and potential complications of bleeding, perforation, reaction to medications and missed diagnosis were discussed with the patient and informed consent was obtained. Instrument: Olympus GIF H 190 midsize upper endoscope Monitoring: Vital signs and clinical assessment, intermittent blood pressure monitoring, continuous EKG monitoring, Pulse oximetry and Carbon Dioxide monitoring were done throughout the procedure. Please see anesthesia flowsheet. Procedure: The patient was placed in the left lateral decubitis position and pre-procedure medications were administered. After a digital rectal examination of the ano-rectum, the video colonoscope was inserted into the rectum and advanced to 30 cms into the sigmoid colon. The upper endoscope was slowly withdrawn in a retrograde panoramic fashion and the colon mucosa was carefully examined including a retroflexed view of the rectum. Findings and interventions are described below. Procedure Difficulty: Without difficulty Findings: Sigmoid Colon: Polypectomy site visualized at 20 cms by presence of mandi ink. No recurrent/residual polyp noted. Moderate diverticulosis Rectum: Normal Ano-rectum: Small internal hemorrhoids Colon preparation: Good Impression and Post Procedure Diagnosis: Colonoscopy Findings: Polypectomy site visualized at 20 cms by presence of mandi ink. No recurrent/residual polyp noted. Moderate diverticulosis seen in the sigmoid colon Small hemorrhoids on retroflexed exam. Plan: Await pathology results Patient has an appointment on 03/13/23 in the [facility] with Dr Hudson. Repeat Colonoscopy interval based on path results - in 3 years (surveillance for colon polyps) Above findings were reviewed with the patient and diverticulosis handout was given in the discharge area
[2023-02-20 14:48] VITALS: BP 82/43; PULSE 84; RESP 14; TEMP 36.2; O2SAT 96
[2023-02-20 15:03] VITALS: BP 94/53; PULSE 82; RESP 16; TEMP 36.2; O2SAT 99
== END 2023-02-20 15:35 | disposition home or self-care (01) ==
PROVIDERS: PCP Internal Medicine; Visit Provider Internal Medicine Gastroenterology
PROC: 0DJD8ZZ Inspection of Lower Intestinal Tract, Via Natural or Artificial Opening Endoscopic (ICD-10-PCS; CPT 45330; principal; 2023-02-20 14:00)
DX: Z12.11 Encounter for screening for malignant neoplasm of colon (principal); Z86.010 Personal history of colon polyps; Z87.19 Personal history of other diseases of the digestive system; K57.30 Diverticulosis of large intestine without perforation or abscess without bleeding; K64.8 Other hemorrhoids; E78.5 Hyperlipidemia, unspecified; F41.9 Anxiety disorder, unspecified; Z79.899 Other long term (current) drug therapy; F12.90 Cannabis use, unspecified, uncomplicated
CPT/HCPCS: 45330; J2704

== ENCOUNTER → 2023-02-20 12:47 | Outpatient (BNV) | payer BC, SELFPAY | PROVIDERS: PCP Internal Medicine; Visit Provider Internal Medicine Gastroenterology | DX: Z86.010 Personal history of colon polyps (principal); K57.30 Diverticulosis of large intestine without perforation or abscess without bleeding; K64.8 Other hemorrhoids | CPT/HCPCS: 45330 ==

== ENCOUNTER 2023-03-11 14:20 | Outpatient (AMB) | payer BC, SELFPAY ==
--- NOTE | 2023-03-11 14:20 | MHC.OFFVIS ---
Intake Intake Visit Reasons: f/u colonoscopy Intake Note: July presents as a telehealth today to go over results to her colonoscopy. CC: No concerns just to review the results of her procedure. Allergies No Known Allergies Allergy (Verified 03/11/23 14:21) HPI HPI Comments History of Present Illness Details 57y. F with n significant PMH who is here for post- procedure follow up. Patient was admitted to [facility] in October for left-sided abdominal pain and was found to have acute uncomplicated sigmoid diverticulitis. Pt states that this is her 3rd episode of uncomplicated diverticulitis. Her last colonoscopy was 7 years ago. Currently, no abdominal symptoms or changes in bowel habits reported. No lower GI bleeding reported. No family history of colon cancer or inflammatory bowel disease. 08/28/22 colonoscopy: Protruding lesions: 1 sessile polyp of size 8 mm in descending colon. Cold snare polypectomy was performed. The polyp was completely removed and retrieved. 1 semi-pedunculated polyp of size 20 mm in sigmoid colon at 20 cm. A previous tattoo was noted in this area. Piece-meal hot snare polypectomy was performed. The polyp was completely removed and retrieved. A Resolution ultra clip was placed at the polypectomy site to prevent post-polypectomy bleeding. Medium internal hemorrhoids without stigmata of recent bleeding. Path: A. Colon, descending, polyp: Tubular adenoma; negative for high-grade dysplasia and carcinoma. B. Colon, at 20 cm, previous tattoo site , polyp: Tubulovillous adenoma (2 pieces) with adenomatous crypts with cautery artifact and a single small focus suspicious for high-grade dysplasia (see comment) 02/20/23 Flex sig (Dr Shea) Polypectomy site visualized at 20 cms by presence of mandi ink. No recurrent/residual polyp noted. Moderate diverticulosis seen in the sigmoid colon Small hemorrhoids on retroflexed exam. 03/11/23: She was seen as tele health. Does not have any active gastrointestinal complaints. Was very happy to hear about the flex sig results. PFSH Medical History Anxiety HLD (hyperlipidemia) Surgical History Hx of elbow surgery Hx of blepharoplasty History of bladder suspension procedure Hx of colonoscopy H/O: hysterectomy Family History Mother Smoker Lung cancer Brother [place] (myocardial infarction) Social History Household Members: Spouse Housing: House Do you presently have visiting nurse or other home services: No Alcohol intake: never Patient Tobacco Use Status: Never used Tobacco Substance Use Type: Marijuana service: No Current occupational status: employed Review of Systems Const All systems reviewed & are unremarkable except as noted in HPI and below Physical Exam Vital Signs: Video visit: No acute distress Normal inspiratory effort No facial asymmetry Assessment & Plan Assessment & Plan (1) Personal history of colonic polyps: Code(s): Z86.010 - Personal history of colonic polyps (2) Diverticulosis: Code(s): K57.90 - Diverticulosis of intestine, part unspecified, without perforation or abscess without bleeding (3) History of diverticulitis: Code(s): Z87.19 - Personal history of other diseases of the digestive system Plan Reviewed with the patient that a follow up colonoscopy is recommended in 3 years to surveil the advanced adenoma from August 2022. Reminder has been set for repeat colonoscopy in summer 2025. Follow-up in the meantime as needed Telehealth Telehealth Location of provider rendering services: practice address Location of patient: address on file Patient Identification confirmed using: Name, : Yes Telehealth method: video Patient verbally consented to treatment: Yes Patient verbally consented to billing insurance company: Yes Minutes spent on Phone/Video with Pt.: 10 Coding Level of Care Code Tele Est Pt Level 3 (39953) Diagnoses Personal history of colonic polyps Z86.010 Diverticulosis K57.90 History of diverticulitis Z87.19
== END 2023-03-11 15:00 | disposition home or self-care (01) ==
LOC: HO.HGI 14:20
PROVIDERS: PCP Internal Medicine; Referring Provider Internal Medicine; Visit Provider Internal Medicine
DX: D12.4 Benign neoplasm of descending colon (principal); K57.90 Diverticulosis of intestine, part unspecified, without perforation or abscess without bleeding; Z87.19 Personal history of other diseases of the digestive system
CPT/HCPCS: 99212

== ENCOUNTER → 2023-03-11 14:20 | Outpatient (BNVA) | payer BC, SELFPAY | PROVIDERS: PCP Internal Medicine; Visit Provider Internal Medicine ==

== ENCOUNTER 2025-02-06 13:57 | Emergency (ER) | payer OTHER, SELFPAY ==
--- OUTSIDE RECORDS SUMMARY | 2025-02-01 23:59 | XMS_ITS | Continuity of Care Document ---
Author Organization [facility] Address [address] [place] [address]- Care Team Providers Care Liability Claims Examiner Name Role Phone Brunilda FOREMAN, Deloris Larry Primary Care Physician [id number] Date(s): 01/02/25 - 02/01/25 [facility] [address] [place] [address]- Attending Physician: Re Dow MD Referring Physician: Deloris Worley MD Encounter Type: Pre Office Visit Allergies, Adverse Reactions, Alerts Substance Criticality Severity Reaction Reaction Severity Status naproxen dizziness Active Medications Clonidine By Mouth, PRN Sleep, 0 Refills, Maintenance, 01/06/24 11:38:00 AM EST, Partial fill upon patient request if the prescription is for a schedule II opioid drug. Start Date: 01/06/24 Status: Ordered Medication Dispense Status: Completed Total Allowed Fills: 1 Fills Dispensed: 0 Lexapro 20 mg oral tablet 1 tablet = 20 mg, By Mouth, Daily, 0 Refills, Maintenance, 01/06/24 11:38:00 AM EST, Partial fill upon patient request if the prescription is for a schedule II opioid drug. Start Date: 01/06/24 Status: Ordered Medication Dispense Status: Completed Total Allowed Fills: 1 Fills Dispensed: 0 Lipitor 10 mg oral tablet 1 tablet = 10 mg, By Mouth, Daily at bedtime, # 90 tablet, 0 Refills, Maintenance, 02/16/20 9:11:00 AM EST, Partial fill upon patient request if the prescription is for a schedule II opioid drug. Start Date: 02/16/20 Status: Ordered Medication Dispense Status: Completed Quantity: 90.0 Unit: tablet Total Allowed Fills: 1 Fills Dispensed: 0 Lorazepam = 0.5 mg, By Mouth, Daily, PRN as needed for anxiety, 0 Refills, Maintenance, 02/16/20 9:11:00 AM EST, Partial fill upon patient request if the prescription is for a schedule II opioid drug. Start Date: 02/16/20 Status: Ordered Medication Dispense Status: Completed Total Allowed Fills: 1 Fills Dispensed: 0 nabumetone 500 mg oral tablet 1 tablet = 500 mg, By Mouth, 2 times a day, with food, # 28 tablet, 0 Refills, Maintenance, 255:58:00 PM EST, Tablet, [facility]/pharmacy #[id number], Partial fill upon patient request if the prescription is for a schedule II opioid drug., 162.56, cm, 03/30/24 17:21:00 EST, Height Start Date: 03/30/24 Stop Date: 04/13/24 Status: Ordered Medication Dispense Status: Completed Quantity: 28.0 Unit: tablet Total Allowed Fills: 1 Fills Dispensed: 0 Problem List Condition Confirmation Course Effective Dates Status H ealth Status Informant Anxiety Confirmed Active Depression Confirmed Active Diverticulosis Confirmed Active Adnexal mass Confirmed Active Follow-up examination after gynecological surgery Confirmed Active Social History Social History Type Response Sexual Sexually involved in last 6 months: Yes. Smoking Status Never smoker entered on: 09/08/17 Sex Sex Representation Female (finding) Patient Care team information Care Team Personnel Name: Deloris Worley MD Position: [facility] Outreach Member Role: PCP Address: [address] [place] [address] Telecom: Care Team Related Persons Name: WILLOW ISLAS Name: CLARITA ISLAS Insurance Providers Guarantor name: BRITTNEY ISLAS Health Plan Information #: 1 Payer: [facility] Payer Identifier: NA Member Number: [id number] Group Number: [id number] Subscriber Identifier: [id number] Relationship to Subscriber: self Coverage Type: NA Coverage Verification Date: NA Telecom: NA Address: NA
--- OUTSIDE RECORDS SUMMARY | 2025-02-01 23:59 | XMS_ITS | Continuity of Care Document ---
Author Organization [facility] Address [address] [place] [address]- Care Team Providers Care Dumpman Name Role Phone Brunilda FOREMAN, Deloris Larry Primary Care Physician [place] [facility] [place]25 - 02/01/25 [facility] [address] [place], [place] [address] Attending Physician: Hannah Dubose Admitting Physician: Hannah Dubose Referring Physician: AdmtrHannah Encounter Type: Triage Allergies, Adverse Reactions, Alerts Substance Criticality Severity [...] 0 Refills, Maintenance, 255:58:00 PM EST, Tablet, [facility]/pharmacy #[id number], Partial fill upon patient request [...] Team Personnel Name: Deloris Worley MD Position: [facility] Outreach Member Role: PCP Address: [address] [place] [address] Telecom: Care Team Related Persons Name: WILLOW ISLAS Name: CLARITA ISLAS Insurance Providers Guarantor name: BRITTNEY ISLAS Health Plan Information #: 1 Payer: [facility] Payer Identifier: NA Member Number: [id number] Group Number: [id number] Subscriber Identifier: NA Relationship to Subscriber: self Coverage Type: NA Coverage Verification Date: NA Telecom: NA Address: NA
--- NOTE | ~2025-02-06 | XR_ITS ---
EXAMINATION: XR HIP, RIGHT CLINICAL INFORMATION: pain, injury COMPARISON: 03/18/21. TECHNIQUE: AP pelvis, and Two views of the right hip. FINDINGS: No fracture, dislocation, or focal bony abnormality. Pelvis is intact. 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 Right hip joint space otherwise normal. No soft tissue abnormalities are present. XR/XR hip RT w [id number] IMPRESSION: No evidence of acute fracture or dislocation. Electronically signed by: Chris Gonzalez MD 02/06/2025 03:04 PM EMILY
--- NOTE | 2025-02-06 14:43 | ED.GENADULT ---
HPI - General Adult General Chief complaint: Fall Stated complaint: Stairs Fall- Pop In R Hip Causing Pain/ Discomfort Time Seen by Provider: 02/06/25 16:29 Source: patient, RN notes reviewed and other (RME) Mode of arrival: ambulatory Limitations: no limitations History of Present Illness ED Provider: Nany Covington PA-C HPI narrative: 59-year-old female presents to the ED for evaluation of right hip pain after slipping on metal stairs at approximately 10 AM today. She denies head strike and loss of consciousness. She is not taking anticoagulation. She was able to ambulate after the fall, though slowly. Pain is localized to the right buttock/greater trochanter region and is worst with direct pressure such as sitting; she anticipates discomfort with walking and lying down. No visible bruising noted yet. She states she tried ?[place] gammaprofen? without relief. Rapid medical exam performed in triage by a PA and pelvic/hip X-rays obtained, which were negative for fracture or dislocation and showed only minimal degenerative changes. Patient does not use assistive devices and does not feel unstable. NO leg weakness or back pain. Review of Systems: Musculoskeletal: Positive for right hip/buttock pain after fall. Neurologic: Denies loss of consciousness. Head: Denies head strike. Related Data Home Medications ?Medication ?Instructions ?Recorded ?Confirmed atorvastatin 10 mg tablet 1 tab PO DAILY 10/23/21 02/20/23 lorazepam 0.5 mg tablet 1 tab PO TID 10/23/21 02/20/23 escitalopram oxalate 10 mg tablet 10 mg PO DAILY 07/15/22 02/20/23 (Lexapro) clonidine HCl 0.1 mg tablet 0.3 mg PO BEDTIME 08/28/22 02/20/23 Previous Rx's ?Medication ?Instructions ?Recorded cyclobenzaprine 10 mg tablet 10 mg PO BEDTIME PRN muscle spasm 02/06/25 #5 tabs Allergies Allergy/AdvReac Type Severity Reaction Status Date / Time naproxen Allergy Dizziness Verified 02/06/25 14:46 Review of Systems Review of Systems: Yes all other systems are reviewed and are negative PMFSH Past Medical History Attestation statement: The following information was validated with the patient. Source: old records reviewed and nursing notes reviewed Medical History Anxiety HLD (hyperlipidemia) Surgical History Hx of elbow surgery Hx of blepharoplasty History of bladder suspension procedure Hx of colonoscopy H/O: hysterectomy Family History Family History Mother Smoker Lung cancer Brother [place] (myocardial infarction) Social History Social History Household Members: Spouse Housing: House Do you presently have visiting nurse or other home services: No Alcohol intake: never Patient Tobacco Use Status: Never used Tobacco Substance Use Type: Marijuana Advance Directives: No Advance Directives Information Provided: No Do you have a plan to hurt others: No Plan service: No Current occupational status: employed Physical Exam ED Exam Exam: General: Appears in no acute distress, appears well nourished body habitus is overweight, appears stated age. No septic or ill-appearing. Vitals reviewed normal, PMH/Social and Surgical hx reviewed including allergies and current medications. Head: Normocephalic, no obvious trauma or skin lesions noted. Eyes: EOMI ENMT: moist oral mucosa Neck: trachea midline, no midline tenderness, step-offs or deformities of entire spine Cardiovascular: peripheral perfusion normal, Regular heart rate, regular rhythm, Respiratory: no respiratory distress, lungs CTAB, no chest wall ttp Abdomen: nondistended Extremities: warm and moving without difficulty. no sciatic notch ttp, no pelvic instability or pain with pelvic rocking, Observed gait: Ambulating independently, gait steady, both feet clearing ground during phases appropriate, no foot drop or lateral hip drop observed. Tenderness to palpation over right greater trochanter region, gluteus medius/minimus. Strength testing of right hip (abduction, adduction, flexion, extension) performed; patient able to complete maneuvers. No visible ecchymosis. No neurovascular compromise to the right lower extremity. Psych: Cooperative Neuro: Alert and oriented. Vital Signs: Vital Signs - 24 hr 02/06/25 14:44 Temperature 97.2 F Pulse Rate 92 Respiratory Rate 18 Blood Pressure 116/56 L Pulse Oximetry 95 Oxygen Delivery Method Room Air BMI result Body Mass Index 27.0 Course Course Course Narrative: Rapid medical examination performed in triage by Batsheva Solis PA-C: Patient is a 59 year old female presenting to the emergency department with right hip pain. Patient states that she fell down some stairs and felt something in her right hip pop, causing pain. Detailed physical exam and review of systems are deferred to the solid waste facility operator. Imaging ordered. Patient placed back in the waiting room pending room availability and results. Medical Decision Making Medical Decision Making MDM Narrative: 59-year-old female presented to the ED with right hip pain following a mechanical fall on stairs.?Low-energy trauma with negative radiographs and reassuring physical examination findings support a diagnosis of soft tissue injury/contusion without occult fracture.?Pelvis and bilateral hip X-rays demonstrated no acute fracture or dislocation, with only minimal degenerative changes. Physical examination revealed localized tenderness over the right greater trochanter and gluteal region but intact strength, normal gait, and no neurovascular compromise. Given the patient's ability to ambulate independently after the fall, absence of severe pain limiting weight-bearing, and reassuring examination findings, the risk of occult hip fracture is low and does not warrant advanced imaging with CT or MRI at this time.?The patient was treated conservatively with ice, NSAIDs, acetaminophen, topical analgesics, and a muscle relaxer for nighttime use. She was discharged home with instructions for gradual return to activity as tolerated and orthopedic follow-up if symptoms persist or worsen. Return precautions were reviewed, including worsening pain, inability to bear weight, or development of new symptoms that would warrant re-evaluation for possible occult fracture. Differential Diagnosis Differential Diagnoses: The differential diagnosis associated with the presentation includes hip/pelvic strain vs fracture contusion Admission/Observation Consideration of admission/observation: Escalation of care including admission/observation considered Independent Interpretation I performed an independent interpretation of an: Plain X-Ray Interpretation: no fracture or dislocation Radiology Impression Discussion of test interpretation with radiology: I have reviewed the radiologist's reading. Radiologist Impression: Pelvis and bilateral hip X-rays: No acute fracture or dislocation. Minimal bilateral degenerative arthritis; joint spaces preserved. Tests considered The following testing was considered but not selected: would have considered pelvic/hip CT had patient's exam been more suspicious for occult fracture in setting of normal x-rays Prescription Management I considered prescription management with: Pain Medication Social Determinants Patient?s care significantly limited by Social Determinants of Health including: Other Social Determinant of Health Discharge Plan Discharge Clinical Impression: Contusion of hip, right, Strain of muscle of right hip Patient Disposition: Home, Self-Care Additional Instructions: Date of Visit: February 06, 2025 Provider: Nany Covington PA-C Chief Complaint: Right hip pain after fall History: Patient presented to the ED after slipping on metal stairs. She was able to walk after the fall. No head strike, no loss of consciousness, and not on anticoagulation. Pain localized to right buttock and greater trochanter area, worse with sitting. Physical Exam: Tenderness over right greater trochanter and gluteal muscles. Normal strength testing of right hip. No bruising noted. No neurovascular compromise. Ambulating independently with steady gait. Imaging: X-rays of pelvis and bilateral hips showed no acute fracture or dislocation. Minimal bilateral degenerative changes with preserved joint spaces. Diagnosis: Right hip contusion/soft tissue injury after mechanical fall Treatment and Discharge Instructions: - Ice to affected area for first 48 hours (20 minutes on/off), then switch to heat - Pain control with acetaminophen, ibuprofen, and topical pain patches as needed - Muscle relaxer prescribed for nighttime use to reduce stiffness - Gradually resume activities as tolerated - Pain may persist with sitting, walking, or lying down initially Follow-up: Return to ED if pain worsens or new symptoms develop. Follow up with orthopedics if pain persists or does not improve with conservative management. Prescriptions: New cyclobenzaprine 10 mg tablet 10 mg PO BEDTIME PRN (Reason: muscle spasm) Qty: 5 0RF No Action atorvastatin 10 mg tablet 1 tab PO DAILY lorazepam 0.5 mg tablet 1 tab PO TID clonidine HCl 0.1 mg tablet 0.3 mg PO BEDTIME escitalopram oxalate [Lexapro] 10 mg tablet 10 mg PO DAILY Referrals: [facility] [Provider Group] Clinical Impression: Strain of muscle of right hip; Contusion of hip, right Vannesa Hurley PA [Physician Desk Representative, Internal Medicine] Referral Note: OCC MED Stand Alone Forms: Work/School Release Interventions: ED Discharge Assessment Last Done: 02/06/25 17:23 Discharge Date/Time: 02/06/25 17:24 Print Language: Bahraini
[2025-02-06 14:44] VITALS: BP 116/56; PULSE 92; RESP 18; TEMP 36.2; O2SAT 95; BMI 27.0
[2025-02-06 16:46] VITALS: BP 102/70; PULSE 84; O2SAT 97
[2025-02-06 17:23] VITALS: BP 102/70; PULSE 84; RESP 18; TEMP 36.2; O2SAT 97
--- OUTSIDE RECORDS SUMMARY | 2025-02-06 18:05 | XMS_ITS | Clinical Summary ---
Author Organization [facility] Address [address] [place] [address] Phone Care Team Providers Care Psychiatric Lpn Name Role Phone Marco Miles MD Unavailable Deloris Worley MD Primary Care Provider [phone] Allergies Active Allergy Reactions Criticality Noted Date Comments Naproxen 06/25/2017 Sensitivity Medications atorvastatin (LIPITOR) 10 MG tablet Take 1 tablet by mouth daily. Active IBUPROFEN ORAL Take by mouth as needed. Active FLUoxetine (PROZAC) 10 MG tablet Take 10 mg by mouth daily. Active MULTIVITAMIN ORAL Take by mouth daily. Active LORazepam (ATIVAN) 0.5 MG tablet Take 0.5 mg by mouth as needed for anxiety. Active estradioL (CLIMARA) 0.05 mg/24 hrIndications:V asomotor flushing Place 1 patch onto the skin once a week. 4 patch 5 08/29/2020 Active meloxicam (MOBIC) 15 MG tablet Take 15 mg by mouth daily. 06/27/2020 Active nitrofurantoin (MACROBID) 100 MG capsuleIndicati ons:Dysuria Take 1 capsule (100 mg total) by mouth 2 (two) times a day. 10 capsule 03/01/2021 Active Active Problems Problem Noted Date Diagnosed Date Anxiety disorder 08/29/2020 Complex cyst of right ovary 12/27/2019 Assessment & Plan (12/27/2019 5:15 PM EST): Findings from ultrasound reviewed from 2018. Patient did not have follow-up ultrasound since that time. On exam I am questioning a 5 cm firm mass just to the right of the pelvic midline. Plan follow-up ultrasound. Encounter for gynecological examination with abnormal finding 12/27/2019 Assessment & Plan (12/27/2019 5:17 PM EST): Possible right adnexal mass and history of abnormal ultrasound in 2018 reviewed with patient. Most recent Pap negative HPV. Patient had past history of negative HPV screening and then in 2018 HPV screening was positive. Clarification of these results reviewed with patient. She was unhappy with how results were presented for her in 2018- implying her may have been having an outside relationship. Patient states they are happily for over 30 years. Possibility of false positive reviewed with patient. 2019 screening was negative. Plan repeat screening 3-5 years. Pap smear abnormality of cer vix/human papillomavirus (HPV) positive 07/09/2017 Overview (07/09/2017): Pap 06/26 shows NIL, HPV post ( neg) Repeat pap in 1 year with cotesting. Pt may want to do at 6 months, she will think about Adnexal mass 06/25/2017 Overview (07/09/2017): Right sided adnexal bulkiness- Not well defined mass. ON U/S there is a right complex cyst - which is similar to a right complex cyst seen in 2015. At that time, she had surgery for a planned oophorectomy but the ovary was normal with surgery - no mass or cyst. Reviewed case with Dr Miles. CA 125 repeated and still normal. Plan is for repeating U/S at 6 months (12/27) and 1 year. If stable, can discontinue U/S at that time Assessment & Plan (06/25/2017 10:26 AM EDT): Pelvic U/S ordered Hot flashes due to menopause 06/25/2017 Assessment & Plan (12/27/2019 3:20 PM EST): Discussed with patient risks and benefits of continued ERT use. Have suggested increasing dose for improved symptom control. Patient agrees. Immunizations Immunization Administration Dates Next Due Influenza Quadrivalent Preservative Free IM 08/2016 Family History Medical History Relation Comments Heart failure Brother 1 COPD Father COPD Mother CV disease Mother Cancer Mother Diabetes Mother Heart attack Mother Hypertension Mother Relation Status Comments Brother 1 Brother 2 Alive Brother 3 Alive Father Maternal Grandfather Maternal Grandmother Mother Paternal Grandfather Paternal Grandmother Social History Tobacco Use Types Packs/Day Years Used Date Smoking Tobacco: Never Smokeless Tobacco: Never Alcohol Use Standard Drinks/Week Comments Yes 0 (1 standard drink = 0.6 oz pur e alcohol) Socially Education Answer Date Recorded Are you interested in more education? Not on florentino e 06/06/2022 Are you concerned about learning? Not on file 06/06/2022 No 06/06/2022 No 06/06/2022 Digital Access Answer Date Recorded No 07/05/2022 No 07/05/2022 Reliable internet access at home? Not on file 07/05/2022 Device with a working camera? 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 file Not on file Last Filed Vital Signs Vital Sign Reading Time Taken Comments Blood Pressure 114/72 09/03/2020 4:20 PM EDT Pulse 63 09/03/2020 4:20 PM EDT Temperature 36.7 C (98 F) 09/03/2020 4:20 PM EDT Respiratory Rate 16 09/03/2020 4:20 PM EDT Oxygen Saturation 98% 09/03/2020 4:20 PM EDT Inhaled Oxygen Concentration - - Weight 86.2 kg (190 lb) 09/03/2020 4:20 PM EDT Height 162.6 cm (5' 4 ) 09/03/2020 4:20 PM EDT Body Mass Index 32.61 09/03/2020 4:20 PM EDT Plan of Treatment Health Maintenance Due Date Last Done Comments Adult Td,Tdap Booster 1965 LIPID PANEL 1965 DEPRESSION SCREENING 1977 HEPATITIS C SCREENING 07/11/1983 HIV ONE-TIME SCREENING (18-65 YEARS) 07/11/1983 COLOGUARD 2010 COLONOSCOPY 2010 COLORECTAL CANCER SCREENING 2010 FIT TEST 2010 FOBT 2010 SIGMOIDOSCOPY 2010 VIRTUAL COLONOSCOPY 2010 PNEUMOCOCCAL VACCINES (50+ years) (1 of 1 - PCV) 07/11/2015 ZOSTER VACCINES (1 of 2) 07/11/2015 PAP SMEAR 08/06/2019 08/05/2018, 07/11, 06/25/2017, Additional history exists MAMMOGRAM 09/03/2021 09/03/2020, 07/15/2017 INFLUENZA VACCINE (#1) 2024 12/16/2016 COVID-19 VACCINE ( - 2024- season) 2024 12/09/2020, 03/11/2020, 02/11/2020 RSV VACCINE (1 - 1-dose 75+ series) 2040 SMOKING STATUS SCREENING (Once After 26 Yrs) Completed 09/05/2020 HEPATITIS A VACCINES Aged Out No long er eligible based on patient's age to complete this topic HIB VACCINES Aged Out No longer eligi ble based on patient's age to complete this topic MENINGOCOCCAL VACCINES (ACWY) Aged Out No longer eligible based on patient's age to complete this topic MENINGOCOCCAL VACCINES (B) Aged Out N o longer eligible based on patient's age to complete this topic Medical Devices Not on file Procedures Procedure Name Priority Date/Time Associated Diagnosis Comments BI MAMMOGRAM SCREENING WITH TOMOSYNTHESIS WITH CAD (BILATERAL) Routine 09/03/2020 1:56 PM EDT Encounter for screening mammogram for malignant neoplasm of breast PAP TEST Routine 08/05/2018 12:00 AM EDT from Last 3 Months or Most Recently Relevant to Health Maintenance Results * BI MAMMOGRAM SCREENING WITH TOMOSYNTHESIS WITH CAD (BILATERAL) (09/03/2020 1:56 PM EDT) Anatomical Region Laterality Modality Breast Left, Breast Right, Breast Bilateral Bila teral Mammography 09/03/2020 1:55 PM EDT Impressions 09/03/2020 2:09 PM EDT No mammographic evidence of malignancy. Recommend annual surveillance. BI-RADS CATEGORY: 2 - Benign finding. DENSITY: The breast tissue is almost entirely fat. Narrative 09/03/2020 2:09 PM EDT 55-year-old female with no current breast symptoms. Comparison made to previous on 07/15/2017 and as far back as 01/28/2011. Interpretation made in conjunction with computer-aided detection and tomosynthesis. The breasts are almost entirely fatty. Decrease in size of the sonographically proven small right breast cyst at 6:00. There are no suspicious masses, areas of architectural distortion, or suspicious clusters of microcalcifications. Procedure Note Russell Donis MD - 09/03/2020 55-year-old female with no current breast symptoms. Comparison made toprevious on 07/15/2017 and as far back as 01/28/2011. Interpretation madein conjunction with computer-aided detection and tomosynthesis. The breasts are almost entirely fatty. Decrease in size of thesonographically proven small right breast cyst at 6:00. There are no suspicious masses, areas of architectural distortion, orsuspicious clusters of microcalcifications. IMPRESSION: No mammographic evidence of malignancy. Recommend annual surveillance. BI-RADS CATEGORY: 2 - Benign finding. DENSITY: The breast tissue is almost entirely fat. Marco Miles MD IMG MG EXAMS Final Result * Pap Smear (08/05/2018 12:00 AM EDT) 08/05/2018 08/06/2018 10: 00 AM EDT Narrative SEE NARRATIVE - 08/13/2018 3:01 [place] [address] Automation Qa Analyst: July Coughlin MD BURSAR Cytology Report FINAL DIAGNOSIS A. PAP SMEAR (SUREPATH) CE: SPECIMEN ADEQUACY: Satisfactory for evaluation; transformation zone present. INTERPRETATION: NEGATIVE FOR INTRAEPITHELIAL LESION OR MALIGNANCY. Electronically Signed Out By: Chaz Ac CT(ASCP) Aggie Gutierrez [facility](ASCP) The Pap test is a screening test primarily for squamous cancers and precursors and has associated false-negative and false-positive results. New technologies such as liquid-based preparations may decrease but will not eliminate all false-negative results. Regular sampling and follow-up of unexplained clinical signs and symptoms are recommended to minimize false negative results. PROCEDURES/ADDENDA HPV Testing (Requested) Ordered Date: 08/06/2018 A. PAP SMEAR (SUREPATH) CE: HPV Test Negative for high-risk human papillomavirus types 16, 18, 45 and the Other high risk probe set (Includes 31, 33, 35, 39, 51, 52, 56, 58, 59, 66, 68) by [employer] HR-HPV analysis. Clinical correlation is advised. This HPV test was performed at [facility], [address] [place] [address]. This test has been FDA approved for SurePath cervical cytology specimens. The accuracy and precision of this test for all other specimen sources has been verified in the Cytopathology Laboratory of the [facility] and has not been cleared or approved by the U.S. Food and Drug Administration. Clinical correlation is advised. CLINICAL HISTORY Date of Last Menstrual Period: Not Provided Menstrual History: Post Menopausal Infection History: HPV: HR+, 2018 Other Clinical Conditions: Screening Pap SPECIMEN SOURCE A: PAP SMEAR (SUREPATH) CE Patient Name: JULY ISLAS : 1965 (Age: 53) Sex: F Institution: [facility] Location: [facility] Date of Collection: 08/05/2018 Date of Reported: 08/13/2018 15:01 Results to: Justine Ly MD Justine Ly MD CYTOLOGY ORDERABLES Final Result SEE NARRATIVE from Last 3 Months or Most Recently Relevant to Health Maintenance Insurance HMO POS HMO POS HMO POS HMO POS HMO POS HMO POS HMO POS HMO POS HMO POS Care Teams Psychiatric Lpn Relationship Specialty Start Date End Date Deloris Worley MD [address] [place] [address] [email or web address] PCP - General Internal Medicine 12/28/19 Marco Miles MD [address] [place] [address], [place] [address] [email or web address] Historical LMR Provider 11/29/16 Additional Source Comments The information contained in this document represents components of the legal health record. It is not the complete legal health record.[facility]
--- OUTSIDE RECORDS SUMMARY | 2025-02-06 18:05 | XMS_ITS | Data Portability ---
Author Organization [facility], [address] Address [address] [place] [address] Care Team Providers Care Scheduling Assistant Name Role Phone [employer] [facility] Primary Care Pro vider Assessment No assessment recorded. Plan of Treatment Reminders Order Date Submit Date Provider Last Modified By Organization Details Last Modified Time Details Appointments None recorded. Lab None recorded. Referral None recorded. Procedures None recorded. Surgeries None recorded. Imaging None recorded. Medication Orders doxycycline monohydrate 100 mg capsule 2022 023 [id number], [address] [place], [address], 10:08:29 mupirocin 2 % topical ointment 2022 023 [id number], [address] [place], [address], 10:08:29 Patient TargetsNo targets recorded. Patient Instructions Encounter Date Encounter Id Patient Instructions Last Modified By Organization Details Last Modified Time 12/11/2022 [id number] spider bite or scorpion sting: care instructions [email or web address] Not available 12/11/2022 10:07:47 insect stings an d bites: care instructions [email or web address] Not available 12/11/2022 10:07:47 cellulitis: care instructions [email or web address] Not available 12/11/2022 10:07:47 Take the antibiotic and use the ointment as prescribed. Take an over the counter probiotic daily while taking the antibiotic. Keep lesions clean with soap and water. Avoid shaving your legs. See printed instructions. Follow-up with your doctor if no improvement in a few days. Seek Emergency Medical evaluation for any worsening symptoms, particularly for high fever, shaking chills, increased pain, redness or swelling. [email or web address] Not available 12/11/2022 10:10:16 Reason for Referral None Reported. Problems Name Problem SNOMED Code Status Onset Date Resolution Date Notes Provider Name and Address Organization Details Recorded Time Hypercholestero lemia 87415361 Active Anne Saniya null, PA - [facility] 3 09:34:04 Anxiety 99110394 Active Anne Saniya null, PA - [facility] 3 09:34:17 Depressive disorder 66189311 Active Anne Saniya null, PA - [facility] 3 09:34:26 Problem Notes None recorded. Medical Equipment None Reported. Allergies Allergen ID Allergen Name Allergen Category Reaction Reaction Severity Criticality Documentation Date Start Date Code Code System Note Provider Name and Address Organization Details Recorded Time [id number] naproxen medicatio n dizziness Not available Not available 12/11/2022 7258 RxNorm Anne Saniya null, PA - [facility] 3 09:31:27 Medications Name Sig Start Date Stop Date Status Note LastModified by Organization Details LastModified Time clonidine HCl 0.1 mg tablet TAKE THREE TABLETS BY MOUTH DAILY AT BEDTIME active Not Available Not Available No t Available trazodone 50 mg tablet TAKE HALF TABLET BY MOUTH DAILY NEEDED FOR SLEEP 12/11 completed Not Available Not Available Not Available atorvastati n 10 mg tablet TAKE 1 TABLET BY MOUTH EVERY DAY active Not Available Not Available No t Available azithromyci n 250 mg tablet TAKE 2 TABLETS BY MOUTH TODAY, THEN TAKE 1 TABLET DAILY FOR 4 DAYS 12/11 completed Not Available Not Available Not Available prednisone 20 mg tablet TAKE 2 TABLETS BY MOUTH EVERY DAY FOR 5 DAYS 12/11 completed Not Available Not Available Not Available acetaminoph en 300 mg-codeine 30 mg tablet TAKE 1 TABLET BY MOUTH EVERY 4 HOURS FOR 5 DAYS NEEDED FOR NIGHTTIME COUGH 12/11 completed Not Available Not Available Not Available ciprofloxac in 500 mg tablet TAKE 1 TABLET BY MOUTH TWICE A DAY FOR 10 DAYS 12/11 completed Not Available Not Available Not Available triamcinolo ne acetonide 0.1 % topical cream APPLY TO AFFECTED AREA TWICE A DAY FOR 7 DAYS active Not Available Not Available No t Available lorazepam 0.5 mg tablet TAKE ONE TABLET BY MOUTH DAILY NEEDED FOR ANXIETY, EXTRA 15 FOR THE MONTH FOR INCREASED ANXIETY active Not Available Not Available No t Available doxycycline monohydrate 100 mg capsule TAKE 1 CAPSULE BY MOUTH TWICE A DAY FOR 7 DAYS active Not Available Not Available No t Available cephalexin 500 mg capsule TAKE 1 CAPSULE BY MOUTH THREE TIMES A DAY FOR 7 DAYS active Not Available Not Available No t Available mupirocin 2 % topical ointment APPLY A SMALL AMOUNT TO AFFECTED AREA 3 TIMES A DAY active Not Available Not Available No t Available albuterol sulfate HFA 90 mcg/actuati on aerosol inhaler INHALE 1-2 PUFFS BY MOUTH EVERY 4-6 HOURS NEEDED FOR WHEEZING/ SHORTNESS OF BREATH 12/11 completed Not Available Not Available Not Available metronidazo le 375 mg capsule TAKE 2 CAPSULES BY MOUTH 2 TIMES DAILY FOR 10 DAYS 12/11 completed Not Available Not Available Not Available escitalopra m 10 mg tablet TAKE 1 TABLET BY MOUTH EVERY DAY active Not Available Not Available No t Available GaviLyte-G 236 gram-22.74 gram-6.74 gram-5.86 gram oral solution PLEASE SEE ATTACHED FOR DETAILED DIRECTION S 12/11 completed Not Available Not Available Not Available Ozempic active Not Available Not Avail able Not Available Vitals Date Recorded Body height Body mass index (BMI) Body weight Respiratory rate Heart rate Oxygen saturation Systolic And Diastolic Provider Name and Address Organization Details Last Updated DateTime 3 162.56 cm 30.9 kg/m2 56739.6 3 g 18 /min 80 /min 95 % 105/76 mm[Hg] Anne Kothari PA - [facility] 3 09:38:00 Social History Question Answer Notes LastModified by Organizat ion Details LastModified Time Tobacco Smoking Status Never Smoker Anne bermudez PA - [facility] 12/11/2022 09:35:16 Which Illicit Or Recreational Drugs Have You Used? Marijuana Less Than Once A Month Information not available 12/11/2022 Have You Had A Flu Shot This Season? No Information not available 12/11/2022 Have You Had Direct Contact, Or Contact During Intimacy, With Monkeypox Rash, Scabs, Or Body Fluids From A Person With Monkeypox? No Information not available 12/11/2022 What Was The Date Of Your Most Recent Tobacco Screening? 12/11/2022 Information not available 12/11/2022 Have You Recently Traveled Abroad? No Information not available 12/11/2022 Sex: Unknown Functional Status Question Answer Note LastModified by Organizat ion Details LastModified Time Do you use any illicit or recreational drugs? Yes Information not available 12/11/2022 Do you or have you ever used any other forms of tobacco or nicotine? No Information not available 12/11/2022 What is your level of alcohol consumption? Occasional 1-2 drinks per month Information not available 12/11/2022 Mental Status None recorded. Family History Relationship Description Onset Age of this Age Resolved Age Notes LastModified by Organization Details LastModified Time Father No current problems or disability Not available 03/2022 09:34:29 Mother No current problems or disability Not available 03/2022 09:34:29 Medical History No medical history recorded. Gynecological History Statement/Question Response Is there any chance of ? No LMP Definite Obstetrics History GPAL:G 0 P 0 0 0 0 Immunizations Vaccine Type Date Status Note Provider Nam e and Address Organization Details Recorded Time COVID-19, mRNA, LNP-S, PF, 100 mcg/0.5mL dose or 50 mcg/0.25mL dose 02/11/2020 completed Anne Saniya null, PA - [facility] 12/11/2022 09:31:04 COVID-19, mRNA, LNP-S, PF, 100 mcg/0.5mL dose or 50 mcg/0.25mL dose 03/11/2020 completed Anne Saniya null, PA - [facility] 12/11/2022 09:31:04 COVID-19, mRNA, LNP-S, PF, 100 mcg/0.5mL dose or 50 mcg/0.25mL dose 12/09/2020 completed Anne Saniya null, PA - [facility] 12/11/2022 09:31:04 Influenza, split virus, quadrivalent, PF 12/16/2016 completed Anne ZHANG Marie - [facility] 12/11/2022 09:31:04 Past Encounters Encounter ID Performer Location Encounter Start Date Encounter Closed Date Diagnosis/Indication Diagnosis SNOMED-CT Code Diagnosis ICD10 Code Diagnosis IMO Codes Diagnosis [place] [id number] [place] [address] [place] [address] 12/11/2022 09:10:25 12/11/2022 10:10:58 Localized infection of skin AND/OR subcutaneous tissue 499384664 L08.9 Health Concerns Section Related Observation LastModified by Organization Detai ls LastModified Time None Recorded Concern Status LastModified by Organization Details LastModified Time None Recorded Advance Directives Directive None Recorded Payers Insurance Date Sequence Insurance Name Policy Number Policy Sorenson Covered Member ID Sorenson Member ID Guarantor Name 12/11/2022 1 [facility] [id number] July Grier [id number] July Grier 12/11/2022 1 [facility] [id number] July Grier [id number] July Grier Notes Date Note Type Note Provider Name and Address Organization Details Recorded Time 12/11/2022 text/html UC Rash/Skin LesionReported by PatientHPIFor quality, patient reportsitchy,painful,re d,non-healing, andspreading. For source of patient information, patient reportsinformation obtained from patientandpatient arrived at urgent care ambulatory. For location, patient reportslegs. For severity, patient reportsmoderate. For duration, patient reports9 days. For context, patient reportsno new detergent or skin product,no recent change in medication,no exposure to hair dye,no expsoure to new clothes/jewelry,no recent travel,no recent illness, andnot affiliated with chemicals/pesticides. For alleviating factors, patient reportsnothing gives relief. For associated symptoms, patient reportsno feverandno fatigue.57 year old female presenting for evaluation of red, painful and pruritic lesions scattered on her legs getting worse for the past 9 days. She thinks they might be spider bites. The lesions start as pustules then erode and drain and scab over. No fever, chills, nausea, vomiting, abdominal pain, lip or tongue swelling, hives, dizziness, shortness of breath, leg swelling, numbness or weakness of the extremities. Alis Pollock MD [address] [place] [address] [place] [address], [place] - [facility] 12/11/2022 10:17:22 OBGyn Episode No OBEpisode recorded.
--- OUTSIDE RECORDS SUMMARY | 2025-02-06 18:06 | XMS_ITS | Encounter Summary ---
Author Organization [facility] Address [address] [place] [address] Phone Care Team Providers Care Chemical Test Engineer Name Role Phone Destiney Vidal NP Unavailable Marco Miles MD Unavailable Luz Maria Barba MD Unavailable Qamar Valdovinos MD Unavailable Unavailable Chris Burnett MD Unavailable [phone] Brendan Fishman MD Unavailable [phone] July Mauricio MD Unavailable [phone] Deloris Worley MD Primary Care Provider [phone] Encounter Details Date Type Department Care Team (Late st Contact Info) Description 08/29/2020 Procedure Pass [facility] - [address] [place] [address] Social History Tobacco Use Types Packs/Day Years Used Date Smoking Tobacco: Never Smokeless Tobacco: Never Alcohol Use Standard Drinks/Week Comments Yes 0 (1 standard drink = 0.6 oz pur e alcohol) Socially Comments No Sex and Gender Information Value Date Recorded Sex Assigned at Female 08/29/2020 10:10 AM EDT Legal Sex Female 9:40 PM EDT Gender Identity Female 08/29/2020 10:10 AM EDT Sexual Orientation Straight 08/29/2020 10 :10 AM EDT 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 PCP - General Internal Medicine 12/28/19 Destiney Vidal NP [address] [place] [address] Historical LMR Provider 11/29/16 2 Marco Miles MD [address] [place] [address] Historical LMR Provider 11/29/16 Luz Maria Barba MD [address] [place] [address] Historical LMR Provider 11/29/16 02/16/21 Qamar Valdovinos MD Historical LMR Provider 11/29/16 02/16/21 Chris Burnett MD [address] [place] [address] Historical LMR Provider 11/29/16 02/16/21 Brendan Fishman MD [address] [place] [address] Historical LMR Provider 11/29/16 2 July Mauricio MD [address] [address] [email or web address] Historical LMR Provider 11/29/16 02/16/21 documented as of this encounter Additional Source Comments The information contained in this document represents components of the legal health record. It is not the complete legal health record.[facility]
--- OUTSIDE RECORDS SUMMARY | 2025-02-06 18:06 | XMS_ITS | Encounter Summary ---
Author Organization [facility] Address [address] [place] [id number] Phone Care Team Providers Care Probation Worker Name Role Phone Qamar Valdovinos MD Primary Care Provider Destiney Zacarias NP Unavailable [phone] Marco Miles MD Unavailable Luz Maria Barba MD Unavailable Qamar Valdovinos MD Unavailable Unavailable Chris Burnett MD Unavailable [phone] Brendan Fishman MD Unavailable [phone] July Mauricio MD Unavailable [phone] Deloris Worley MD Primary Care Provider [phone] Encounter Details Date Type Department Care Team (Late st Contact Info) Description 06/29/2017 Ancillary Orders Virtual Department [address] [place] [address] Qamar Valdovinos MD Breast screening Social History Tobacco Use Types Packs/Day Years [...] Orientation Straight 08/29/2020 10 :10 AM EDT documented as of this encounter Plan of Treatment Not on file documented as of this encounter Results * BI MAMMOGRAM SCREENING WITH TOMOSYNTHESIS WITH CAD (BILATERAL) (07/15/2017 9:39 AM EDT) Anatomical Region Laterality Modality Breast Left, Breast Right, Breast Bilateral Bila teral Mammography 07/15/2017 9:46 AM EDT Impressions 07/15/2017 9:54 AM EDT No mammographic evidence of malignancy. Recommend routine annual surveillance. BI-RADS CATEGORY: 2 - Benign finding. DENSITY: There are scattered fibroglandular densities. POS - CDHMAMA Narrative 07/15/2017 9:54 AM EDT 52-year-old female with no current breast symptoms. Comparison made to previous on 04/23/2015 and as far back as 01/28/2011. Interpretation made in conjunction with computer-aided detection and tomosynthesis. There are scattered areas of fibroglandular density. Stable 7 mm mass at approximately 6:00 in the right breast corresponding to a septated cyst on prior ultrasounds. There are no suspicious masses, areas of architectural distortion, or suspicious clusters of microcalcifications. Procedure Note Forest Santamaria MD - 07/15/2017 52-year-old female with no current breast symptoms. Comparison made toprevious on 04/23/2015 and as far back as 01/28/2011. Interpretation madein conjunction with computer-aided detection and tomosynthesis. There are scattered areas of fibroglandular density. Stable 7 mm mass atapproximately 6:00 in the right breast corresponding to a septated cyst onprior ultrasounds. There are no suspicious masses, areas of architectural distortion, orsuspicious clusters of microcalcifications. IMPRESSION: No mammographic evidence of malignancy. Recommend routine annualsurveillance. BI-RADS CATEGORY: 2 - Benign finding. DENSITY: There are scattered fibroglandular densities. POS - CDHMAMA us Qamar Valdovinos MD IMG MG EXAMS Final Result documented in this encounter Visit Diagnoses Diagnosis Breast screening Breast screening, unspecified Breast screening Breast screening, unspecified documented in this encounter Care Teams Probation Worker Relationship Specialty Start Date End Date Qamar Valdovinos MD PCP - General 11/24/16 12/27/19 Deloris Worley MD [address] [place] [address] [address] [place] [address] [email or web address] PCP - General Internal Medicine 12/28/19 Destiney Vidal NP [address] [place] [address] [place] [id number] Historical LMR Provider 11/29/16 2 Marco Miles MD [address] [place] [address] [email or web address] Historical LMR Provider 11/29/16 Luz Maria Barba MD [address] [place] [id number] [email or web address] Historical LMR Provider 11/29/16 02/16/21 Qamar Valdovinos MD Historical LMR Provider 11/29/16 02/16/21 Chris Burnett MD [address] [place] [id number] [email or web address] Historical LMR Provider 11/29/16 02/16/21 Brendan Fishman MD [address] [place] [id number] Historical LMR Provider 11/29/16 2 July Mauricio MD [address] [place] [id number] [email or web address] Historical LMR Provider 11/29/16 02/16/21 documented as of this encounter Additional Source Comments The information contained in this document represents components of the legal health record. It is not the complete legal health record.[facility]
== END 2025-02-06 17:24 | disposition home or self-care (01) ==
PROVIDERS: Emergency Provider Emergency Medicine; PCP Internal Medicine
DX: S70.01XA Contusion of right hip, initial encounter (principal); S76.011A Strain of muscle, fascia and tendon of right hip, initial encounter; M25.551 Pain in right hip; X50.9XXA Other and unspecified overexertion or strenuous movements or postures, initial encounter; Y93.9 Activity, unspecified; Y92.9 Unspecified place or not applicable; Y99.8 Other external cause status
CPT/HCPCS: 73502; 99282; 99283

== ENCOUNTER → 2025-02-06 14:45 | Outpatient (BNV) | payer BC, SELFPAY | PROVIDERS: PCP Internal Medicine; Visit Provider Radiology Diagnostic Radiology | DX: M25.551 Pain in right hip (principal) | CPT/HCPCS: 73502 ==